=== PATIENT | female | born 1945 | race Caucasian/White ===

== ENCOUNTER 2016-08-17 06:31 | Inpatient (IN) | payer MEDICARE, OTHER ==
[~2016-08-17 06:31] MED LIST: HYDROmorphone 1 MG/ML 1 ML SYRINGE IVP STA; ONDANSETRON 4 MG/2 ML VIAL IVP STA
--- NOTE | 2016-08-17 06:34 | ED ---
General Adult HPI - General Source: RN notes reviewed <Adrian Freedman - Last Filed: 08/17/16 06:37> <Ciaran Santiago - Last Filed: 08/17/16 11:26> - General Stated complaint: R hip pain Time Seen by Provider: 08/17/16 06:31 - History of Present Illness Initial comments: This is a 71-year-old female who presents to the emergency department complaining of right shoulder and right hip pain. Patient states she slipped yesterday and fell down on her right side daughter helped her to the couch and she is feeling ever since. Patient try to get up this morning was having so much pain and hip she was unable to move it so she called the ambulance and EMS brought her into the emergency department. Patient states she had no head or neck pain. Patient denies any numbness weakness. Patient states she did not have any head trauma and did not lose consciousness. Patient denies any chest pain or back pain. Patient denies any difficulty breathing. Patient denies abdominal pain. Patient's main complaint is the lateral shoulder which she states she can move but it hurts to move the patient complains of lateral right hip pain however she states she is unable to move because the pain is too great. (Adrian Freedman) Review of Systems ROS Other: All systems not noted in ROS Statement are negative. <Adrian Freedman - Last Filed: 08/17/16 06:37> ROS Other: All systems not noted in ROS Statement are negative. <Ciaran Santiago - Last Filed: 08/17/16 11:26> ROS Statement: Those systems with pertinent positive or pertinent negative responses have been documented in the HPI. General Exam <Adrian Freedman - Last Filed: 08/17/16 06:37> <Ciaran Santiago - Last Filed: 08/17/16 11:26> - General Exam Comments Initial Comments: GENERAL: Patient is well-developed and well-nourished. Patient is nontoxic and well- hydrated and is in mild distress. ENT: Neck is soft and supple. No significant lymphadenopathy is noted. Oropharynx is clear. Moist mucous membranes. Neck has full range of motion without eliciting any pain. EYES: The sclera were anicteric and conjunctiva were pink and moist. Extraocular movements were intact and pupils were equal round and reactive to light. Eyelids were unremarkable. PULMONARY: Unlabored respirations. Good breath sounds bilaterally. No audible rales rhonchi or wheezing was noted. CARDIOVASCULAR: There is a regular rate and rhythm without any murmurs gallops or rubs. ABDOMEN: Soft and nontender with normal bowel sounds. SKIN: Skin is clear with no lesions or rashes and otherwise unremarkable. NEUROLOGIC: Patient is alert and oriented x3. Cranial nerves II through XII are grossly intact. Motor and sensory are also intact. Normal speech, volume and content. Symmetrical smile. MUSCULOSKELETAL: Normal extremities with adequate strength and full range of motion. Patient has tenderness to the lateral right shoulder lateral right hip. Patient is unable to move the hip but she is able to move her arm but it does cause her some pain. LYMPHATICS: No significant lymphadenopathy is noted PSYCHIATRIC: Normal psychiatric evaluation. Normal interpersonal interactions appears functionally intact in deals appropriately with others. No signs of depression. No signs of anxiety. (Adrian Freedman) Medical Decision Making <Adrian Freedman - Last Filed: 08/17/16 06:37> - Radiology Data Radiology results: image reviewed (Computed tomography scan of the right hip shows subcapital nondisplaced fracture. X-ray of the right hip and pelvis shows no obvious fracture. X-ray of the right shoulder does show humeral head oblique nondisplaced fracture. Right upper lobe nodule.) <Ciaran Santiago - Last Filed: 08/17/16 11:26> - Medical Decision Making Dr. Santiago will be taking over the care of this patient at 7 AM (Adrian Freedman) Patient reevaluated and drowsy however was updated. Case discussed with practitioner gal, who will admit for Dr. Dasilva. (Ciaran Santiago) Disposition <Adrian Freedman - Last Filed: 08/17/16 06:37> <Ciaran Santiago - Last Filed: 08/17/16 11:26> Clinical Impression: Fracture of right hip, Fracture of humeral head, right, closed, Lung nodule Disposition: ADMITTED IP TO THIS HOSP
--- NOTE | 2016-08-17 07:32 | XR ---
EXAMINATION TYPE: XR shoulder limited RT DATE OF EXAM: 08/17/2016 7:25 AM CLINICAL HISTORY: Fall injury with pain. TECHNIQUE: Two views of the right shoulder are obtained. COMPARISON: None. FINDINGS: Osseous structures are demineralized. There seen best on frontal view there is acute nondi splaced linear fracture involving the lateral aspect of the right humeral head near level of the grea ter tuberosity. The acromioclavicular and glenohumeral joint spaces appear within normal limits. Th e visualized ribs are intact and unremarkable. Chronic parenchymal changes are felt present with slig htly more suspicious nodular opacity right upper lobe. Neoplasm needs to BE excluded. IMPRESSION: There is acute nondisplaced oblique fracture through the lateral aspect of the right hum eral head. Attention to right upper lung, nonemergent CT correlation advised.
--- NOTE | 2016-08-17 07:35 | XR ---
EXAMINATION TYPE: XR Hip RT and AP Pelvis DATE OF EXAM: 08/17/2016 7:24 AM COMPARISON: NONE HISTORY: Fall injury with pelvic and right hip pain TECHNIQUE: A single AP view of the pelvis is obtained. Two views of the right hip are obtained. FINDINGS: Exam is suboptimal due to rotation. There is no acute fracture/dislocation evident in the pelvis definitively seen. The sacroiliac joints appear symmetric and unremarkable. Overlying vascula r calcification and phleboliths is present. Two views of right hip show discontinuity along the superior margin felt projectional as no linear jayne cency is identified and improved visualization is noted on frog-leg view. No focal lytic or scleroti c lesion seen in the proximal right femur. The overlying soft tissue is unremarkable. IMPRESSION: There is no acute fracture or dislocation in the pelvis or right hip definitively seen. If clinical suspicion is strong further investigation with CT exam would be warranted.
[2016-08-17] MEDS ORDERED: ONDANSETRON 4 MG/2 ML VIAL IVP STA (09:56)
[2016-08-17] MEDS ORDERED: MORPHINE SULFATE 4 MG/ML SYRINGE IVP STA (09:56)
--- NOTE | 2016-08-17 11:01 | CT ---
EXAMINATION TYPE: CT hip RT wo con DATE OF EXAM: 08/17/2016 10:44 AM COMPARISON: Same day pelvic x-ray HISTORY: Right hip pain after fall injury. CT DLP: 213.00 mGycm Automated exposure control for dose reduction was used. CT scan of pelvis focus in the left hip is pe rformed without contrast FINDINGS: Osseous structures are demineralized. There is linear lucency consistent with acute nondisplaced frac ture involving the anterior aspect of the proximal right femur at the femoral neck level seen best on axial image 56 and coronal image 40 at subcapital level. No hip joint dislocation is seen. Hip joint spaces are maintained bilaterally. No additional acute fracture or dislocation in the visualized pelvis is seen. Pubic symphysis and neo ateral sacroiliac joints are maintained. There is distortion from positioning noted making evaluation suboptimal. Muscle bulk and right thigh is within normal limits and symmetric to opposite left side. Visualized bowel shows no suspicious dilatation. Some distal diverticula are present in the sigmoid colon. Bladder is distended. There is facet arthropathy in the lower lumbar spine. There is spurring and disc space narrowing right L4-L5 level. IMPRESSION: THERE IS ACUTE NONDISPLACED LINEAR FRACTURE SUBCAPITAL LEVEL ANTERIORLY IN THE PROXIMAL RIGHT FEMUR
[2016-08-17] MEDS ORDERED: MORPHINE SULFATE 4 MG/ML SYRINGE IV PRN (11:26)
[2016-08-17] MEDS ORDERED: ONDANSETRON 4 MG/2 ML VIAL IVP PRN (11:26)
[2016-08-17] MEDS ORDERED: NALOXONE 0.4 MG/ML 1 ML VIAL IV PRN (11:26)
[2016-08-17] MEDS ORDERED: SODIUM CHLORIDE 0.9% 1,000 ML IV SCH (11:30)
[2016-08-17 12:13] LABS: Anisocytosis Slight; Basophils # (A) 0.1 k/uL (0-0.2); Basophils % (A) 1 %; CH 25.5; CHCM 29.4; Eosinophils # (A) 0.4 k/uL (0-0.7); Eosinophils % (A) 6 %; HCT 29.5 % (34.0-46.0); HGB 8.9 gm/dL (11.4-16.0); Hypochromasia Marked; Luc # (Auto) 0.26; Luc % (Auto) 4; Lymphocytes % (A) 14 %; MCH 26.2 pg (25.0-35.0); MCV 87.2 fL (80.0-100.0); Mean Platelet Volume 7.3; Monocytes # (A) 0.5 k/uL (0-1.0); Monocytes % (A) 7 %; Neutrophils % (A) 69 %; RBC 3.39 m/uL (3.80-5.40); WBC 7.2 k/uL (3.8-10.6); WBC (Perox) 7.55
[2016-08-17 12:28] LABS: Partial Thromboplastin Time 22.1 sec (22.0-30.0)
[2016-08-17 12:34] LABS: INR 1.1 (<1.1); Prothrombin Time 10.9 sec (9.0-12.0)
[2016-08-17 13:39] LABS: ALT 39 U/L (9-52); AST 45 U/L (14-36); Alkaline Phosphatase 221 U/L (38-126); Anion Gap 8 mmol/L; Blood Urea Nitrogen 24 mg/dL (7-17); Carbon Dioxide 29 mmol/L (22-30); Chloride 105 mmol/L (98-107); Glucose 89 mg/dL (74-99); Non-African American GFR(MDRD) >60 (>60 ml/min/1.73 sqM); Potassium 4.7 mmol/L (3.5-5.1); Sodium 142 mmol/L (137-145); Total Bilirubin 0.4 mg/dL (0.2-1.3); Total Protein 8.1 g/dL (6.3-8.2)
[2016-08-17] MEDS ORDERED: ACETAMINOPHEN IV (For NPO) 1,000 MG in EMPTY BAG 1 BAG IVPB PRN (14:21)
[2016-08-17] MEDS ORDERED: HYDROcodone/APAP 5-325MG 1 EACH TAB PO PRN (14:23)
[2016-08-17] MEDS ORDERED: IPRATROPIUM-ALBUTEROL 3 ML NEB INHALATION PRN (15:21)
[2016-08-17] MEDS ORDERED: SUMAtriptan SUCCINATE 50 MG TAB PO PRN (18:50)
[2016-08-17] MEDS: BUDESONIDE 0.5 MG/2 ML NEBU INHALATION SCH (19:00)
[2016-08-17] MEDS: FORMOTEROL FUMARATE 20 MCG/2 ML NEBU INHALATION SCH (19:01)
[2016-08-17] MEDS: IPRATROPIUM-ALBUTEROL 3 ML NEB INHALATION SCH ×2 (19:01)
[2016-08-17] MEDS: HYDROmorphone 1 MG/ML 1 ML SYRINGE IVP PRN (19:19)
--- NOTE | 2016-08-17 20:14 | XR ---
EXAMINATION TYPE: XR chest 1V DATE OF EXAM: 08/17/2016 4:10 PM COMPARISON: Chest CT same date HISTORY: COPD and cough TECHNIQUE: Single frontal view of the chest is obtained. FINDINGS: Calcified breast prostheses are present. There is extensive interstitial change within the lung, interlobular septal pleural thickening, patient is rotated. Heart size is normal. No pneumotho rax or pleural effusion. IMPRESSION: Interstitial lung disease, there may be underlying COPD, bronchiectasis.
--- NOTE | 2016-08-17 20:22 | CT ---
EXAMINATION TYPE: CT chest wo con DATE OF EXAM: 08/17/2016 7:38 PM COMPARISON: Chest x-ray same day HISTORY: R/O mass. CT DLP: 142.8 mGycm Automated exposure control for dose reduction was used. FINDINGS: Calcified breast prostheses are present with findings suggestive of intracapsular ruptures. There may be extracapsular rupture additionally. There is extensive interstitial change within the lung, inter lobular septal pleural thickening, parenchymal bands, bronchial wall thickening is present. Bronchiec tasis changes, emphysematous changes are present, cystic lucencies within the lung parenchyma especia lly in the upper lobes. Apical pleural thickening is present. Retrocaval pretracheal adenopathy. The pulmonary artery is enlarged. There are coronary artery calcifications. Two cystic foci are present within the left lobe liver measuring approximately 16 mm. IMPRESSION: FINDINGS COULD POSSIBLY REPRESENT AN ATYPICAL PRESENTATION OF LYMPHANGIOMYOMATOSIS. BRONCHIECTASIS. M AY BE AREAS OF PNEUMONITIS, BRONCHOPNEUMONIA. Correlate for pulmonary artery hypertension. Retrocaval pretracheal adenopathy is present. Consider pulmonary fibrosis, Lymphangitic spread of carcinoma not excluded
[2016-08-17] MEDS: clonazePAM 0.5 MG TAB PO SCH (20:42)
[2016-08-17] MEDS: cloNIDine HCL 0.1 MG TAB PO SCH (20:43)
[2016-08-17] MEDS: CYCLOBENZAPRINE 10 MG TAB PO SCH (20:43)
[2016-08-17] MEDS: methylPREDNISolone SOD SUCCI 40 MG/ML 1 ML VIAL IV SCH (20:43)
[2016-08-17] MEDS: GABAPENTIN 300 MG CAP PO SCH (20:43)
[2016-08-18] MEDS: GABAPENTIN 300 MG CAP PO SCH ×4 (02:38→19:59)
[2016-08-18] MEDS: clonazePAM 0.5 MG TAB PO SCH ×3 (02:38→19:58)
[2016-08-18] MEDS: cloNIDine HCL 0.1 MG TAB PO SCH ×3 (02:38→19:58)
[2016-08-18] MEDS: CYCLOBENZAPRINE 10 MG TAB PO SCH ×4 (02:38→19:59)
[2016-08-18] MEDS: HYDROmorphone 1 MG/ML 1 ML SYRINGE IVP PRN ×5 (03:32→19:59)
--- NOTE | 2016-08-18 06:56 | P.HPOR ---
History of Present Illness H&P Date: 08/17/16 Chief Complaint: Right hip fracture This is a 71-year-old female who sustained a fall on home on 08/16/2016. She presented to [facility] on 08/17/2016 and was admitted to our service for right hip fracture. The patient was seen and evaluated in the emergency department on 08/17. Unfortunately she just received morphine and was very drowsy and unable to provide any history. She seen and evaluated again this morning and is much more alert. She states that she had a slip and fall on the patio. She had immediate pain in her right hip and shoulder. She also had a fall couple weeks ago as well. She complains of right hip pain that is worse with any motion. She has COPD. She has no new complaints this time. No fevers , chills, nausea, vomiting, worsening shortness of breath or chest pain. Review of Systems See HPI Past Medical History Past Medical History: COPD, Hypertension History of Any Multi-Drug Resistant Organisms: None Reported Past Surgical History: Hysterectomy Past Psychological History: No Psychological Hx Reported Smoking Status: Current every day smoker Past Alcohol Use History: None Reported Past Drug Use History: None Reported - Past Family History Mother Additional Family Medical History / Comment(s): unable to verbalize Medications and Allergies Home Medications Medication Instructions Recorded Confirmed Type Acetaminophen Tab [Tylenol Tab] 650 mg PO Q6H PRN 08/17/16 08/17/16 History Albuterol Nebulized [Ventolin 2.5 mg INHALATION RT-QID PRN 08/17/16 08/17/16 History Nebulized] Budesonide [Pulmicort] 0.5 mg INHALATION RT-BID 08/17/16 08/17/16 History Cyclobenzaprine [Flexeril] 10 mg PO TID 08/17/16 08/17/16 History Gabapentin 600 mg PO TID 08/17/16 08/17/16 History HYDROcodone/APAP 10-325MG [Kingfisher 1 tab PO QID PRN 08/17/16 08/17/16 History 10-325] Hydrochlorothiazide [Hydrodiuril] 12.5 mg PO BID 08/17/16 08/17/16 History Ipratropium Holden [Atrovent Hfa] 2 puff INHALATION RT-QID PRN 08/17/16 History SUMAtriptan SUCCINATE [Imitrex] 100 mg PO BID PRN 08/17/16 08/17/16 History Tiotropium Holden [Spiriva] 1 cap INHALATION RT-DAILY 08/17/16 08/17/16 History cloNIDine HCL [Catapres] 0.1 mg PO BID 08/17/16 08/17/16 History clonazePAM [KlonoPIN] 0.5 mg PO BID 08/17/16 08/17/16 History diphenhydrAMINE HCL [Benadryl] 25 mg PO BID PRN 08/17/16 08/17/16 History Allergies Allergy/AdvReac Type Severity Reaction Status Date / Time No Known Allergies Allergy Verified 08/17/16 06:41 Physical Examination She does not appear in acute distress. She is alert and orientated 3. Her daughter is present at bedside. Head normocephalic atraumatic. Neck is supple. Breathing appears nonlabored. Abdomen is soft and nondistended. She complains of right shoulder pain to palpation. Range of motion is limited secondary to pain and fracture. There is mild swelling. No ecchymosis. Skin is intact. She moves her left upper extremity freely without difficulty or pain. Upon examination of her lower extremities is pain palpation of the right hip and worsening pain with any motion of the right hip. She otherwise denies any other areas of pain of her long bones and joints. She has sustained dorsiflexion plantar flexion. Dorsalis pedis pulse 2+ out of 4+ right lower extremity. Sensation is intact. Results X-rays of the right shoulder showed greater tuberosity fracture and suspicion for long nodule. Computed tomography scan of the right hip show acute nondisplaced linear fracture at the subcapital level in the right femur. - Labs Labs: Abnormal Lab Results - Last 24 Hours (Table) 08/17/16 08/17/16 Range/Units 11:55 12:50 RBC 3.39 L (3.80-5.40) m/uL Hgb 8.9 L (11.4-16.0) gm/dL Hct 29.5 L (34.0-46.0) % MCHC 30.0 L (31.0-37.0) g/dL RDW 17.0 H (11.5-15.5) % BUN 24 H (7-17) mg/dL AST 45 H (14-36) U/L Alkaline Phosphatase 221 H (38-126) U/L H & H 08/17/16 Range/Units 11:55 Hgb 8.9 L (11.4-16.0) gm/dL Hct 29.5 L (34.0-46.0) % Coagulation 08/17/16 Range/Units 11:55 INR 1.1 (<1.1) Result Diagrams: 08/17/16 11:55 08/17/16 12:50 Assessment and Plan (1) Fall Status: Acute (2) Fracture of right hip Status: Acute (3) Greater tuberosity of humerus fracture Status: Acute Plan: The clinical and x-ray findings were discussed with the patient and her daughter at bedside. The nature of this type of injuries discussed as well. Nonoperative versus operative treatment is discussed. Orthopedics recommends hemiarthroplasty of the right hip. This is been scheduled for Friday pending medical clearance. The patient will remain nothing by mouth after midnight. Possible risks and complications of the procedure including but not limited to infection, bleeding, myocardial infraction, stroke, hip dislocation, leg length discrepancy and were discussed. Patient understands the risks and wishes to proceed with the procedure. Her right humerus fracture be treated with a sling. Lung nodule be worked up by medicine. The patient will likely require 3-4 day hospital stay with subacute rehab upon discharge. Further recommendations forthcoming depending upon the patient's course.
[2016-08-18] MEDS ORDERED: HYDROmorphone 1 MG/ML 1 ML SYRINGE IVP PRN (07:12)
[2016-08-18 07:13] LABS: Anisocytosis Slight; Basophils # (A) 0.1 k/uL (0-0.2); Basophils % (A) 1 %; CH 25.7; CHCM 29.5; Eosinophils % (A) 0 %; HDW 2.75; HGB 8.8 gm/dL (11.4-16.0); Hypochromasia Marked; Luc # (Auto) 0.35; Luc % (Auto) 4; Lymphocytes # (A) 1.5 k/uL (1.0-4.8); Lymphocytes % (A) 16 %; MCH 25.6 pg (25.0-35.0); MCHC 29.3 g/dL (31.0-37.0); MCV 87.3 fL (80.0-100.0); Mean Platelet Volume 7.2; Monocytes # (A) 0.7 k/uL (0-1.0); Monocytes % (A) 8 %; Neutrophils # (A) 6.5 k/uL (1.3-7.7); Neutrophils % (A) 71 %; RBC 3.43 m/uL (3.80-5.40); WBC 9.1 k/uL (3.8-10.6); WBC (Perox) 9.47
[2016-08-18] MEDS ORDERED: LACTATED RINGERS 1,000 ML IV SCH (07:15)
[2016-08-18] MEDS: FORMOTEROL FUMARATE 20 MCG/2 ML NEBU INHALATION SCH ×2 (07:29→18:57)
[2016-08-18] MEDS: BUDESONIDE 0.5 MG/2 ML NEBU INHALATION SCH ×2 (07:29→18:57)
[2016-08-18] MEDS: IPRATROPIUM-ALBUTEROL 3 ML NEB INHALATION SCH ×3 (07:29→15:16)
[2016-08-18] MEDS ORDERED: ceFAZolin 2 GM in SODIUM CHLORIDE 0.9% 100 ML IVPB ONE (07:34)
[2016-08-18 07:35] LABS: Anion Gap 10 mmol/L; Calcium 9.3 mg/dL (8.4-10.2); Carbon Dioxide 25 mmol/L (22-30); Chloride 107 mmol/L (98-107); Glucose 101 mg/dL (74-99); Non-African American GFR(MDRD) >60 (>60 ml/min/1.73 sqM); Sodium 142 mmol/L (137-145)
[2016-08-18 07:36] LABS: Blood Urea Nitrogen 21 mg/dL (7-17)
[2016-08-18 07:39] LABS: Potassium 4.5 mmol/L (3.5-5.1)
[2016-08-18] MEDS ORDERED: ONDANSETRON 4 MG/2 ML VIAL ONE (07:58)
[2016-08-18] MEDS ORDERED: fentaNYL (PF) 50 MCG/ML 2 ML AMP ONE (07:58)
[2016-08-18] MEDS ORDERED: PHENYLEPHRINE-0.9% NACL SYG 1 MG/10 ML SYRINGE ONE (07:58)
[2016-08-18] MEDS ORDERED: MIDAZOLAM 2 MG/2 ML VIAL ONE (07:58)
[2016-08-18] MEDS ORDERED: KETAMINE 10 MG/ML 20 ML VIAL ONE (07:58)
[2016-08-18] MEDS ORDERED: IV FLUID CONTINUATION 500 ML IV ONE ×2 (08:08)
[2016-08-18] MEDS ORDERED: SODIUM CHLORIDE 0.9% 50 ML with ceFAZolin 2,000 MG IV ONE ×4 (08:08)
[2016-08-18] MEDS ORDERED: ceFAZolin 3,000 MG in SODIUM CHLORIDE 0.9% IRRIGATIO 3,000 ML IRRIGATION ONE (08:30)
[2016-08-18] MEDS ORDERED: LACTATED RINGERS 1,000 ML IV ONE ×2 (08:33)
--- NOTE | 2016-08-18 09:02 | P.OP ---
Date of Procedure: 08/18/16 Preoperative Diagnosis: Subcapital fracture right hip Postoperative Diagnosis: Subcapital fracture right hip Procedure(s) Performed: Right hip hemiarthroplasty Implants: Pacheco and nephew Polarstem size 3 standard [employer]ache[employer]hew tandem unipolar, 44 mm Pacheco [employer]hew tandem unipolar 12/14 taper sleeve, -3 mm All components were press-fit. Anesthesia: spinal Surgeon: Cheng Dasilva Extension Specialist #1: Erendira Munroe Estimated Blood Loss (ml): 100 Pathology: other (Femoral head) Condition: stable Disposition: PACU Indications for Procedure: This is a 71-year-old female who fell at home onto her right side. X-rays demonstrated a fracture of her subcapital right hip and right greater tuberosity of the shoulder. After discussing the surgical nonsurgical treatment options with her at length, I have recommended a right hip hemiarthroplasty for hip fracture. Other options included a hip pinning, but due to the fracture of her right shoulder, I recommended a hemiarthroplasty because of the ability to bear full weight immediately. She is agreeable to this, and informed consent was obtained. Operative Findings: Operative findings are consistent with a subcapital fracture of the right hip. Description of Procedure: Patient was seen and evaluated in the preoperative area, consent was reviewed and the operative site was marked with a skin marker. Patient was then brought to the operating room and given 2 g of Ancef intravenously. A spinal anesthetic was administered by the anesthesia department. Patient was then placed in a lateral decubitus position and held with a Montral hip positioner. The bony prominences were well-padded and an axillary roll was placed. The hip was then prepped and draped in the usual sterile fashion. A universal timeout was then performed which confirmed the patient's name, surgical site, ALLERGIES, and procedure. A standard anterolateral approach the hip was performed. Skin and subcutaneous tissues were sharply incised with an incision centered over the tip of the greater trochanter. The incision was carefully dissected down to the fascia. The fascia was then split in line with skin incision and a Charnley retractor was gently placed. The abductors were then identified, and the anterior one third of the abductors were released off the trochanter and one large sleeve. The fracture hematoma was evacuated and the proximal femur was exposed by externally rotating the femur. The fracture site was readily visualized. Next , using an osteotomy guide, the proximal femur was osteotomized at the appropriate level of the above the lesser trochanter. This bone was then removed. Attention was then turned to the femoral head. Using a corkscrew, the femoral head was removed from the acetabulum without incident. The acetabulum was inspected, and found to have no significant arthrosis. Femoral head was then measured. Attention was then redirected to the femur. Proximal femur was re-exposed and a box osteotome was used to lateralize the proximal femur. A shaper machine hand was then used to locate the femoral canal. Sequential broaching was then performed to the appropriate size. The calcar was then planed and trial head and neck were placed. The hip was then gently reduced. Leg lengths were checked and found to be equal. Hip was then taken through a full range of motion was stable throughout. The hip was then gently dislocated with the aid of a bone hook. The trial head and neck were then removed. The femoral broach was then inspected and found to have a secure fit. The broach was then removed. The hip was then copiously irrigated with antibiotic solution with a pulse lavage. Components were then opened and the femoral stem was then impacted into the proximal femur. The trunnion was cleaned and dried, and the femoral head and neck were then impacted. Hip was again gently reduced. Again leg lengths were checked and found to be equal, and the hip was taken through a full range of motion and found to be stable. The hip was again irrigated with pulsatile lavage, then followed by the Irrrisept solution. The abductors were then repaired through drill holes to the bone to the greater trochanter, utilizing #5 Ethibond suture. Next the fascia was repaired with #2 strata fix suture. The subcutaneous tissue was then repaired with 3-0 Vicryl. The subcuticular tissue was then repaired with 3-0 strata fix suture. Skin was then closed with Dermabond tape. A sterile dressing was then applied and the patient was transported to the recovery room in stable condition. Extension Specialist Erendira Munroe was required due to the complexity of surgery the need for skilled surgical instruments inspector. She assisted with positioning the patient, draping the patient, retraction during the surgery, and closure of the wound.
[2016-08-18] MEDS: PANTOPRAZOLE 40 MG TABLET PO SCH (09:14)
[2016-08-18] MEDS: methylPREDNISolone SOD SUCCI 40 MG/ML 1 ML VIAL IV SCH ×2 (09:15→19:58)
[2016-08-18] MEDS ORDERED: HYDROcodone/APAP 5-325MG 1 EACH TAB PO PRN ×2 (09:22→09:25)
[2016-08-18] MEDS ORDERED: NALOXONE 0.4 MG/ML 1 ML VIAL IV PRN (09:22)
[2016-08-18] MEDS ORDERED: MAGNESIUM HYDROXIDE 2,400 MG/10 ML CUP PO PRN (09:22)
[2016-08-18] MEDS ORDERED: ALBUTEROL NEBULIZED 2.5 MG/3 ML INHALATION ONE (09:25)
--- NOTE | 2016-08-18 10:00 | XR ---
Limited right hip HISTORY: Status post right hip arthroplasty Single frontal view of the right hip submitted. Comparison to CT scan 17 August 2016 FINDINGS: Patient is status post right hip arthroplasty. Lucency in the soft tissues compatible with postop state. There is anatomic alignment. IMPRESSION: Orthopedic follow-up.
[2016-08-18 10:46] LABS: Anisocytosis Slight; Basophils % (A) 0 %; CH 24.8; CHCM 27.6; Eosinophils # (A) 0.1 k/uL (0-0.7); Eosinophils % (A) 1 %; HCT 30.9 % (34.0-46.0); HDW 2.66; HGB 8.7 gm/dL (11.4-16.0); Hypochromasia Marked; Luc # (Auto) 0.24; Luc % (Auto) 2; Lymphocytes % (A) 10 %; MCH 25.3 pg (25.0-35.0); MCHC 28.1 g/dL (31.0-37.0); Mean Platelet Volume 6.5; Monocytes # (A) 0.5 k/uL (0-1.0); Monocytes % (A) 5 %; Neutrophils # (A) 8.7 k/uL (1.3-7.7); Neutrophils % (A) 82 %; RBC 3.43 m/uL (3.80-5.40); RDW 16.4 % (11.5-15.5); WBC 10.6 k/uL (3.8-10.6); WBC (Perox) 11.45
--- NOTE | 2016-08-18 10:48 | CONS ---
DATE OF CONSULTATION: 08/17/2016 REASON FOR CONSULTATION: Cough, congestion, shortness of breath and abnormal shoulder x-ray. HISTORY OF PRESENTING ILLNESS: Ms. Ann Jones is a 71-year-old female with extensive history of smoking and nicotine use. She used to smoke about 1-1/2 to 2 packs per day, has been an active smoker. Patient presented into the emergency department after a fall. Patient started to develop progressive weakness in the hip as well as shoulder after the fall with severe pain. Patient was found to have oblique fracture of the right humerus as well as the subcapital fracture of the right hip as well. Orthopedic surgery, Dr. Dasilva is following. Patient has been noted to have increased shortness of breath and presence of a nodule. I was asked to evaluate this patient further. On specific questioning, patient does have ongoing symptoms of cough, congestion and shortness of breath. Patient does see Dr. Carleen Malloy on outpatient basis. She describes some procedure has been done and overall it appears that probably nodule is old nodule and not a new one. The records from the office; however, are not available at this point in time. She does have cough, wheezing and shortness of breath off and on going on. It appears that the patient has been Xolair as well in the past. Past medical history significant for severe chronic obstructive pulmonary disease, emphysema, right upper lobe nodule, recent fall with right subcapital fracture, nondisplaced and right humeral fracture. Generalized anxiety disorder, migraine headaches, hypertension. PAST SURGICAL HISTORY: Otherwise unremarkable and noncontributory. ALLERGIES: No known drug allergy. Medications at home include: 1. Tylenol as needed. 2. Nebulizer Ventolin 4 times a day. 3. Pulmicort 2 times a day. 4. Flexeril as needed. 5. Neurontin 600, 3 times a day. 6. [place] 10, 1 tablet 4 times a day. 7. Also on Atrovent HFA 2 puffs 4 times a day. 8. Imitrex as needed 100 mg 2 times a day. 9. Spiriva once daily. 10. Catapres 0.1 mg p.o. 2 times a day. 11. Klonopin 0.5 b.i.d. 12. Benadryl as needed 25 mg. FAMILY HISTORY AND SOCIAL HISTORY: As dictated above, otherwise unremarkable and noncontributory. REVIEW OF SYSTEMS: MANAGER PLAY: Denies any seizure-like activity, loss of consciousness, hemiparesis. CARDIORESPIRATORY: Significant for cough, shortness of breath. Cough is mostly dry and nonproductive, has issues associated with wheezing as well. GI/: Otherwise unremarkable. MUSCULOSKELETAL/DERMATOLOGICAL: Unremarkable except as dictated above. Current medications while in the hospital include Tylenol as needed, DuoNeb unit dose updraft 4 times a day, [place] as needed, Dilaudid for pain control, Narcan, Zofran, normal saline KVO. On examination, most recent vitals include blood pressure is 124/79, respiratory rate 16 to 18, heart rate is 99, temperature 98, saturation 93% on 2 liters oxygen. HEENT: Atraumatic, normocephalic. Pharynx is clear without any exudate. NECK: Supple without any lymphadenopathy, jugular venous distention. LUNGS: Bilateral inspiratory, expiratory wheezing and rhonchi are present. HEART: Regular rate and rhythm. S1 and S2 audible. ABDOMEN: Soft. No rebound or rigidity. EXTREMITIES: +1 peripheral pulses. NEUROLOGICAL EXAMINATION: Otherwise, awake and alert. X-ray is reviewed. The x-ray of the shoulder reveal acute nondisplaced oblique fracture through the lateral part of the right humeral head, nodular opacity is seen in the right upper lobe on the same x-ray. Hip x-ray finding as dictated above as well as CT finding, which revealed presence of acute nondisplaced ( ) fracture subcapital area anteriorly in the right femur. Other laboratory data reviewed. White cell count 7200, hemoglobin 8.9, hematocrit 29, platelet count 259,000. Sodium is 140, potassium 4.7. BUN and creatinine 24 and 0.7. Alk phos is 221. AST and ALT, 45 and 39. Influenza A and B both negative. IMPRESSION: 1. Acute chronic obstructive pulmonary disease exacerbation. 2. Tracheobronchitis. 3. Status post fall with nondisplaced fracture of right humeral head as well as subcapital fracture of right femur. 4. Right upper lobe nodule. PLAN AND RECOMMENDATION: To continue patient on breathing treatments, add Pulmicort. Will initiate patient on empiric antibiotics as well as IV steroids. Surgical intervention as per Orthopedic Surgery. I will obtain a CT scan of the chest without IV contrast as well to look at the exact details about the nodule. Will follow.
--- NOTE | 2016-08-18 11:17 | CONS ---
REASON FOR CONSULT: Regarding COPD with multiple medical issues requested by Orthopedic Surgery. HISTORY OF PRESENT ILLNESS: This 71-year-old woman with a past medical history of COPD, hypertension, history of hysterectomy, history of nicotine dependence being followed by Dr. Sage in the outpatient setting was admitted with femoral fracture as well as humerus fracture on the right side after slipping and falling. There is no history of any syncope. No history of any headache, loss of consciousness. Patient also has history of significant COPD. Patient also complains of cough at this time. There is no history of any fever, rigors or chills. No history of headache, loss of consciousness, seizures. PAST MEDICAL HISTORY: COPD, hypertension, history of nicotine dependence. Medications prior to admission include: 1. Benadryl 25 mg b.i.d. p.r.n. 2. Klonopin 0.5 mg b.i.d. 3. Catapres 0.1. p.o. b.i.d. 4. Spiriva 1 puff daily. 5. Imitrex 100 mg b.i.d. p.r.n. 6. Atrovent HFA 2 puffs q.i.d. p.r.n. 7. HydroDIURIL 12.5 mg b.i.d. 8. [place] 10 mg q.i.d. p.r.n. 9. Gabapentin 600 mg t.i.d. 10. Flexeril 10 mg p.o. t.i.d. 11. Pulmicort 0.5 mg b.i.d. 12. Ventolin 2.5 t.i.d. p.r.n. 13. Tylenol 650 every 6 hours p.r.n. ALLERGIES: None. FAMILY HISTORY: No history of heart disease or strokes in the family. SOCIAL HISTORY: History of continuous smoking. No history of alcohol intake. REVIEW OF SYSTEMS: ENT: Diminishing hearing. Diminished vision. CARDIOVASCULAR: No angina, palpitations. RESPIRATORY: As mentioned earlier. GI: No nausea. : No dysuria. NERVOUS: No numbness, weakness. ALLERGY/IMMUNOLOGY: No asthma, hay fever. MUSCULOSKELETAL: As mentioned earlier. HEMATOLOGY/ONCOLOGY: Negative. DERMATOLOGY: Negative. RHEUMATOLOGY: Negative. PSYCHIATRY: As mentioned earlier. PHYSICAL EXAM: Alert and oriented x2. Pulse 102, blood pressure 124/79, respirations 16, temperature 97.8, pulse ox 93% on 2L. HEENT: Conjunctivae normal. Oral mucosa moist. NECK: No jugular venous distension. No carotid bruits. No lymph node enlargement. CARDIOVASCULAR: S1, S2 muffled. No S3. No S4. RESPIRATORY: Breath sounds diminished at the bases. A few scattered rhonchi and crackles. Expiratory wheezing also . ABDOMEN: Soft, nontender. No mass palpable. LEGS: No edema. No swelling. NERVOUS SYSTEM: Higher functions as mentioned. Moves all 4 limbs. Mild diffuse weakness. LYMPHATIC: No lymph nodes palpable in neck, axillae or groins. SKIN: No ulcer, rash or bleeding. Labs at this time show WBC 7.8, hemoglobin is 8.9. Alk phos 221, AST is 45. Influenza negative. ASSESSMENT: 1. Acute right femoral fracture and as well as right humerus fracture, status post fall. 2. Anemia, normocytic anemia of chronic disease. 3. Increased AST. 4. Increased BUN with some dehydration, present on admission. 5. History of chronic obstructive pulmonary disease. 6. History of hypertension. 7. History of nicotine dependence. 8. FULL CODE. RECOMMENDATIONS AND DISCUSSION: In this 71-year-old woman who presented with multiple complex medical issues, we will monitor the patient closely. Continue the current medications, optimize bronchodilator treatment, pulmonary consultation. Otherwise, continue to monitor. IV steroids per Pulmonary. We will follow the patient closely with you. Patient is clinically stable. The patient will be cleared for surgery if they accept risks because of the multiple medications as mentioned earlier. Once again, we will optimize the bronchodilator treatment. MTDD
[2016-08-18] MEDS: HYDROcodone/APAP 5-325MG 1 EACH TAB PO PRN (13:15)
[2016-08-18] MEDS: SODIUM CHLORIDE 0.9% 1,000 ML IV SCH ×2 (13:21→23:49)
[2016-08-18] MEDS ORDERED: METOPROLOL TARTRATE 12.5 MG TAB PO SCH (16:15)
[2016-08-18] MEDS ORDERED: LEVALBUTEROL NEB 0.31 MG/3 ML AMP INHALATION PRN (17:03)
[2016-08-18] MEDS ORDERED: IPRATROPIUM 0.5 MG/2.5 ML NEBU INHALATION PRN (17:04)
[2016-08-18 17:12] LABS: Glucose,Whole Blood 268 mg/dL (75-99)
[2016-08-18] MEDS: ceFAZolin 2 GM in SODIUM CHLORIDE 0.9% 100 ML IVPB SCH ×2 (17:18→23:49)
[2016-08-18 17:32] LABS: Amorphous Sediment,Urine Rare /hpf; Appearance,Urine Clear (Clear); Bacteria,Urine Rare /hpf; Bilirubin,Urine Negative (Negative); Glucose,Urine (UA) Negative (Negative); Ketones,Urine Negative (Negative); Leukocyte Esterase,Urine Small (Negative); Mucus,Urine Occasional /hpf; Nitrite,Urine Negative (Negative); PH, Urine 5.5 (5.0-8.0); Particle Count 2520; Protein,Urine Trace (Negative); RBC,Urine 12 /hpf (0-5); Squamous Epithelial Cell,Urine <1 /hpf (0-4); UA Billing (MACRO vs. MICRO) MICRO; Urobilinogen,Urine <2.0 mg/dL (<2.0); WBC,Urine 12 /hpf (0-5)
[2016-08-18] MEDS ORDERED: LEVALBUTEROL NEB (CONC) 1.25 MG/0.5 ML AMP INHALATION PRN (17:38)
[2016-08-18] MEDS ORDERED: WARFARIN 5 MG TAB PO ONE (18:00)
[2016-08-18] MEDS: INSULIN LISPRO (humaLOG) 300 UNIT/3 ML VIAL SQ SCH ×2 (18:05→21:42)
[2016-08-18] MEDS: IPRATROPIUM 0.5 MG/2.5 ML NEBU INHALATION SCH (18:57)
[2016-08-18] MEDS: LEVALBUTEROL NEB (CONC) 1.25 MG/0.5 ML AMP INHALATION SCH (18:57)
[2016-08-18] MEDS: SENNOSIDES-DOCUSATE SODIUM 1 EACH TAB PO SCH (19:58)
[2016-08-18] MEDS ORDERED: LEVALBUTEROL NEB 0.31 MG/3 ML AMP INHALATION SCH (20:00)
[2016-08-18 20:16] LABS: Glucose,Whole Blood 136 mg/dL (75-99)
[2016-08-19] MEDS: HYDROcodone/APAP 5-325MG 1 EACH TAB PO PRN ×4 (05:19→18:44)
[2016-08-19 07:10] LABS: Glucose,Whole Blood 137 mg/dL (75-99)
[2016-08-19 07:19] LABS: Anisocytosis Slight; Basophils % (A) 0 %; CH 25.3; CHCM 28.9; Eosinophils % (A) 0 %; HCT 26.1 % (34.0-46.0); HDW 2.76; HGB 7.6 gm/dL (11.4-16.0); Hypochromasia Marked; Luc # (Auto) 0.27; Luc % (Auto) 3; Lymphocytes # (A) 1.1 k/uL (1.0-4.8); Lymphocytes % (A) 14 %; MCH 25.5 pg (25.0-35.0); MCHC 29.1 g/dL (31.0-37.0); MCV 87.6 fL (80.0-100.0); Mean Platelet Volume 7.2; Monocytes # (A) 0.7 k/uL (0-1.0); Monocytes % (A) 9 %; Neutrophils # (A) 5.8 k/uL (1.3-7.7); Neutrophils % (A) 73 %; RBC 2.98 m/uL (3.80-5.40); RDW 16.7 % (11.5-15.5); WBC 7.9 k/uL (3.8-10.6); WBC (Perox) 8.13
[2016-08-19 07:24] LABS: INR 1.2 (<1.1); Prothrombin Time 11.6 sec (9.0-12.0)
[2016-08-19 07:37] LABS: Anion Gap 8 mmol/L; Blood Urea Nitrogen 14 mg/dL (7-17); Calcium 8.6 mg/dL (8.4-10.2); Carbon Dioxide 26 mmol/L (22-30); Chloride 107 mmol/L (98-107); Glucose 134 mg/dL (74-99); Non-African American GFR(MDRD) >60 (>60 ml/min/1.73 sqM); Potassium 4.2 mmol/L (3.5-5.1); Sodium 141 mmol/L (137-145)
[2016-08-19] MEDS: BUDESONIDE 0.5 MG/2 ML NEBU INHALATION SCH ×2 (07:55→19:30)
[2016-08-19] MEDS: IPRATROPIUM 0.5 MG/2.5 ML NEBU INHALATION SCH ×3 (07:55→19:30)
[2016-08-19] MEDS: FORMOTEROL FUMARATE 20 MCG/2 ML NEBU INHALATION SCH ×2 (07:55→19:30)
[2016-08-19] MEDS: LEVALBUTEROL NEB (CONC) 1.25 MG/0.5 ML AMP INHALATION SCH ×3 (07:55→19:30)
[2016-08-19] MEDS: INSULIN LISPRO (humaLOG) 300 UNIT/3 ML VIAL SQ SCH ×4 (08:31→20:42)
[2016-08-19] MEDS: methylPREDNISolone SOD SUCCI 40 MG/ML 1 ML VIAL IV SCH ×2 (08:31→20:42)
[2016-08-19] MEDS: GABAPENTIN 300 MG CAP PO SCH ×3 (08:31→20:42)
[2016-08-19] MEDS: PANTOPRAZOLE 40 MG TABLET PO SCH (08:32)
[2016-08-19] MEDS: cloNIDine HCL 0.1 MG TAB PO SCH ×2 (08:32→20:41)
[2016-08-19] MEDS: CYCLOBENZAPRINE 10 MG TAB PO SCH ×3 (08:32→20:42)
--- NOTE | 2016-08-19 08:34 | P.PN ---
Subjective Principal diagnosis: tachycardia This is a continue present on a 71-year-old white female essentially meant for hip fracture. She is postop day #1 but is having postop tachycardia and hypertension. We will go ahead and increase her Lopressor to 12.5 mg twice a day and titrate. The patient does not describe any new shortness of breath. However, there is pneumonitis possibly on computed tomography scan. Appreciate pulmonology input. Objective - Vital Signs Vital signs: Vital Signs Temp 98.8 F 08/19/16 02:10 Pulse 110 H 08/19/16 08:25 Resp 16 08/19/16 02:10 BP 126/70 08/19/16 02:10 Pulse Ox 95 08/19/16 07:59 Intake & Output 08/18/16 08/19/16 08/19/16 18:59 06:59 18:59 Intake Total 1801 1275 Output Total 750 500 Balance 1051 775 Intake: IV 1801 975 Sodium Chloride 0.9% 1, 600 975 000 ml @ 75 mls/hr IV . [id number] [facility] Rx#:[id number] Oral 300 Output: Urine 650 500 Uretheral (Cuevas) 350 Estimated Blood Loss 100 Other: Voiding Method Indwelling Catheter Indwelling Catheter Indwelling Catheter - Constitutional General appearance: Present: thin - EENT Eyes: Absent: abnormal pupil - Respiratory Respiratory: bilateral: diminished - Cardiovascular Heart sounds: normal: S1, S2 - Gastrointestinal General gastrointestinal: Present: soft. Absent: tenderness - Psychiatric Psychiatric: Present: A&O x's 3 - Labs CBC & Chem 7: 08/19/16 06:55 08/19/16 06:55 Labs: Abnormal Lab Results - Last 24 Hours (Table) 08/18/16 08/18/16 08/18/16 Range/Units 10:16 17:11 17:15 RBC 3.43 L (3.80-5.40) m/uL Hgb 8.7 L (11.4-16.0) gm/dL Hct 30.9 L (34.0-46.0) % MCHC 28.1 L (31.0-37.0) g/dL RDW 16.4 H (11.5-15.5) % Neutrophils # 8.7 H (1.3-7.7) k/uL Creatinine (0.52-1.04) mg/dL Glucose (74-99) mg/dL POC Glucose (mg/dL) 268 H (75-99) mg/dL Urine Protein Trace H (Negative) Urine Blood Small H (Negative) Ur Leukocyte Esterase Small H (Negative) Urine RBC 12 H (0-5) /hpf Urine WBC 12 H (0-5) /hpf Amorphous Sediment Rare H (None) /hpf Urine Bacteria Rare H (None) /hpf Urine Mucus Occasional H (None) /hpf 08/18/16 08/19/16 08/19/16 Range/Units 20:14 06:44 06:55 RBC 2.98 L (3.80-5.40) m/uL Hgb 7.6 L (11.4-16.0) gm/dL Hct 26.1 L (34.0-46.0) % MCHC 29.1 L (31.0-37.0) g/dL RDW 16.7 H (11.5-15.5) % Neutrophils # (1.3-7.7) k/uL Creatinine (0.52-1.04) mg/dL Glucose (74-99) mg/dL POC Glucose (mg/dL) 136 H 137 H (75-99) mg/dL Urine Protein (Negative) Urine Blood (Negative) Ur Leukocyte Esterase (Negative) Urine RBC (0-5) /hpf Urine WBC (0-5) /hpf Amorphous Sediment (None) /hpf Urine Bacteria (None) /hpf Urine Mucus (None) /hpf 08/19/16 Range/Units 06:55 RBC (3.80-5.40) m/uL Hgb (11.4-16.0) gm/dL Hct (34.0-46.0) % MCHC (31.0-37.0) g/dL RDW (11.5-15.5) % Neutrophils # (1.3-7.7) k/uL Creatinine 0.50 L (0.52-1.04) mg/dL Glucose 134 H (74-99) mg/dL POC Glucose (mg/dL) (75-99) mg/dL Urine Protein (Negative) Urine Blood (Negative) Ur Leukocyte Esterase (Negative) Urine RBC (0-5) /hpf Urine WBC (0-5) /hpf Amorphous Sediment (None) /hpf Urine Bacteria (None) /hpf Urine Mucus (None) /hpf Microbiology - Last 24 Hours (Table) 08/18/16 17:15 Urine Culture - Preliminary Urine,Clean Catch Assessment and Plan (1) UTI (urinary tract infection) Status: Acute (2) Sinus tachycardia Status: Acute (3) Fracture of humeral head, right, closed Status: Acute (4) Lung nodule Status: Acute Plan: We'll go ahead and continue current regimen but increase her Lopressor. Check CBC in a.m. See orders otherwise. Continue postop pulmonary toilet. Discharge planning for ECF versus home health. Time with Patient: Less than 30
[2016-08-19] MEDS: clonazePAM 0.5 MG TAB PO SCH ×2 (08:36→20:41)
[2016-08-19] MEDS: METOPROLOL TARTRATE 12.5 MG TAB PO SCH ×2 (08:36→20:42)
--- NOTE | 2016-08-19 08:43 | P.PN ---
Subjective Principal diagnosis: Status post right hip hemiarthroplasty This is a pleasant 71-year-old female who is status post right hip hemiarthroplasty. Today's postoperative day #1. She also has greater tuberosity fracture of the right shoulder. She seen and evaluated at bedside this morning. She complains of pain at the shoulder and hip. She's not yet with physical therapy. She does have baseline COPD and is coughing today. Objective - Vital Signs Vital signs: Vital Signs Temp 98.8 F 08/19/16 02:10 Pulse 110 H 08/19/16 08:25 Resp 16 08/19/16 02:10 BP 126/70 08/19/16 02:10 Pulse Ox 95 08/19/16 07:59 Intake & Output 08/18/16 08/19/16 08/19/16 18:59 06:59 18:59 Intake Total 1801 1275 Output Total 750 500 Balance 1051 775 Intake: IV 1801 975 Sodium Chloride 0.9% 1, 600 975 000 ml @ 75 mls/hr IV . [id number] [facility] Rx#:[id number] Oral 300 Output: Urine 650 500 Uretheral (Cuevas) 350 Estimated Blood Loss 100 Other: Voiding Method Indwelling Catheter Indwelling Catheter Indwelling Catheter - Exam The patient does not appear in acute distress. Alert and orientated 3. Dressing is clean dry and intact. Incision appears fine with no erythema or active drainage. Calf is soft and nontender. Good foot and ankle motion without difficulty. Sensation and circulatory status is intact. Sling is intact. She is able to wiggle all 5 fingers without difficulty or pain. Sensation and circulatory status is intact. - Labs CBC & Chem 7: 08/19/16 06:55 08/19/16 06:55 Labs: Abnormal Lab Results - Last 24 Hours (Table) 08/18/16 08/18/16 08/18/16 Range/Units 10:16 17:11 17:15 RBC 3.43 L (3.80-5.40) m/uL Hgb 8.7 L (11.4-16.0) gm/dL Hct 30.9 L (34.0-46.0) % MCHC 28.1 L (31.0-37.0) g/dL RDW 16.4 H (11.5-15.5) % Neutrophils # 8.7 H (1.3-7.7) k/uL Creatinine (0.52-1.04) mg/dL Glucose (74-99) mg/dL POC Glucose (mg/dL) 268 H (75-99) mg/dL Urine Protein Trace H (Negative) Urine Blood Small H (Negative) Ur Leukocyte Esterase Small H (Negative) Urine RBC 12 H (0-5) /hpf Urine WBC 12 H (0-5) /hpf Amorphous Sediment Rare H (None) /hpf Urine Bacteria Rare H (None) /hpf Urine Mucus Occasional H (None) /hpf 08/18/16 08/19/16 08/19/16 Range/Units 20:14 06:44 06:55 RBC 2.98 L (3.80-5.40) m/uL Hgb 7.6 L (11.4-16.0) gm/dL Hct 26.1 L (34.0-46.0) % MCHC 29.1 L (31.0-37.0) g/dL RDW 16.7 H (11.5-15.5) % Neutrophils # (1.3-7.7) k/uL Creatinine (0.52-1.04) mg/dL Glucose (74-99) mg/dL POC Glucose (mg/dL) 136 H 137 H (75-99) mg/dL Urine Protein (Negative) Urine Blood (Negative) Ur Leukocyte Esterase (Negative) Urine RBC (0-5) /hpf Urine WBC (0-5) /hpf Amorphous Sediment (None) /hpf Urine Bacteria (None) /hpf Urine Mucus (None) /hpf 08/19/16 Range/Units 06:55 RBC (3.80-5.40) m/uL Hgb (11.4-16.0) gm/dL Hct (34.0-46.0) % MCHC (31.0-37.0) g/dL RDW (11.5-15.5) % Neutrophils # (1.3-7.7) k/uL Creatinine 0.50 L (0.52-1.04) mg/dL Glucose 134 H (74-99) mg/dL POC Glucose (mg/dL) (75-99) mg/dL Urine Protein (Negative) Urine Blood (Negative) Ur Leukocyte Esterase (Negative) Urine RBC (0-5) /hpf Urine WBC (0-5) /hpf Amorphous Sediment (None) /hpf Urine Bacteria (None) /hpf Urine Mucus (None) /hpf Microbiology - Last 24 Hours (Table) 08/18/16 17:15 Urine Culture - Preliminary Urine,Clean Catch Assessment and Plan (1) Fall Status: Acute (2) Fracture of right hip Status: Acute (3) Greater tuberosity of humerus fracture Status: Acute Plan: Continue with routine postoperative care. Pain control today and anticoagulation with Coumadin. Physical therapy will attempt to mobilize. Anticipate transfer to rehab in the next 24-48 hours.
[2016-08-19 08:48] LABS: Hemoglobin A1C 5.7 % (4.2-6.1)
--- NOTE | 2016-08-19 09:19 | PN ---
Ann Jones is a 71-year-old female who is seen, evaluated, and examined. This patient has been hospitalized because of hip fracture, has been noted to have COPD exacerbation and tracheobronchitis and right upper lobe nodule. Patient is status post postop day #0 of right hip arthroplasty by Dr. Dasilva. Last set of vitals include blood pressure is 130/57, respirations 16, pulse 110, temperature 98, saturation of 93% on 3 L oxygen. HEENT EXAMINATION: Otherwise unremarkable. NECK: Supple without any lymphadenopathy, jugular venous distention or carotid bruit. LUNGS: Bilateral coarse breath sounds are present. HEART: Regular rate and rhythm. S1 and S2 audible. Abdomen is soft. No rebound or rigidity. EXTREMITIES: +1 peripheral pulses. NEUROLOGICAL EXAMINATION: Otherwise, awake and alert. Medications reviewed include Tylenol with codeine 4 times a day, DuoNeb unit dose updraft 4 times a day. Also on Pulmicort 2 times a day, Rocephin once daily, cefazolin is q.8 hourly. Also on Klonopin, Catapres is 0.1 two times a day, Flexeril, Benadryl, Perforomist is 2 times a day, Neurontin, Dilaudid, Restoril, Milk of magnesia, Coumadin as per protocol. Solu-Medrol is 40 q.12 hourly. Laboratory data reviewed. White cell count is 10,600, hemoglobin and hematocrit is 8.7 and 30.9, platelet count of 242,000. Chemistry reviewed. BUN and creatinine are 21and 0.6. Rest of chemistry is normal. The radiographic studies including CT scan of the chest has been reviewed. The patient has breast prosthesis with question off intracapsular rupture with interstitial changes in the lung. Pleural thickening septation has been noted along with interstitial changes in the lung. Pleural thickening septation has been noted along with bands along with bronchial wall thickening, bronchiectasis. Emphysematous changes are seen along with cystic changes in the lung parenchyma, especially in the upper part of the lung. Pneumonia cannot be excluded. Lymphadenopathy in pretracheal area, likely reactive is present. IMPRESSION: 1. Acute chronic obstructive pulmonary disease exacerbation. 2. Pneumonia along with pulmonary fibrosis and bronchiectasis. 3. End-stage lung disease secondary severe chronic obstructive pulmonary disease. 4. Status post fall and left hip fracture. Plan is to continue steroids, bronchodilators, antibiotics. Continue supportive care. Further more extensive evaluation of the lungs issues and problem in outpatient setting by Dr. Floyd Maloly.
--- NOTE | 2016-08-19 09:50 | PN ---
I am covering for Dr. Sage. HISTORY OF PRESENT ILLNESS: This is a 71-year-old woman who was admitted after right humerus fracture and right hip fracture, underwent right hip hemiarthroplasty by Dr. Dasilva. The patient also has COPD. No chest or palpitation. Occasional cough is reported. On exam, alert and oriented x3. Pulse 109, blood pressure 113/56, respirations 16, temperature 98.1, pulse ox 96% on room air. HEENT: Conjunctivae normal. NECK: No jugular venous distension. CARDIOVASCULAR SYSTEM: S1, S2, muffled. RESPIRATORY: Breath sounds diminished at the bases. A few scattered rhonchi, no crackles, respiratory wheezing also present. ABDOMEN: Soft, nontender. No mass palpable. EXTREMITIES: Legs no edema, no swelling. Status post surgery, no . Humerus right status post fracture on a sling. LABS: WBC is 10.3, hemoglobin is 8.6. Influenza is negative. ASSESSMENT: 1. Acute right hip fracture, status post right hip hemiarthroplasty. 2. Right humerus fracture, status post fall. 3. Anemia, normocytic anemia of chronic disease, present on admission. 4. Increased AST. 5. Increased BUN with some dehydration was present on admission. 6. History of chronic obstructive pulmonary disease. 7. Hypertension. 8. History of nicotine dependence. 9. Tachycardia 10. FULL CODE. RECOMMENDATION AND DISCUSSION: In this 71-year-old woman who presented with multiple complex medical issues, will monitor the patient closely. Continue with the current medication. The initial EKG shows sinus tachycardia. Will continue to monitor and the pleura is slightly elevated. I would recommend a small dose of beta blockers to be added to the current regimen and continue to monitor. Guarded prognosis. Further recommendations to follow. Dr. Sage will follow. Patient is started on IV steroids also. MTDD
[2016-08-19 11:37] LABS: Glucose,Whole Blood 137 mg/dL (75-99)
[2016-08-19 14:14] VITALS: BMI 23.8
--- NOTE | 2016-08-19 15:21 | P.PN ---
Subjective Principal diagnosis: Fall with hip/humerus fracture Patient seen and examined. Patient states she is in pain and wants to be moved from the chair to the bed. The nurse is notified. THe patient states her breathing is a little worse today. She continues to smoke even though she was told she shouldn't. She denies cough, fever, chills. Objective - Vital Signs Vital signs: Vital Signs Temp 98.8 F 08/19/16 02:10 Pulse 118 H 08/19/16 14:35 Resp 16 08/19/16 02:10 BP 126/70 08/19/16 02:10 Pulse Ox 95 08/19/16 07:59 Intake & Output 08/18/16 08/19/16 08/19/16 18:59 06:59 18:59 Intake Total 1801 1275 Output Total 750 500 300 Balance 1051 775 -300 Weight 57.153 kg Intake: IV 1801 975 Sodium Chloride 0.9% 1, 600 975 000 ml @ 75 mls/hr IV . [id number] [facility] Rx#:[id number] Oral 300 Output: Urine 650 500 300 Uretheral (Cuevas) 350 300 Estimated Blood Loss 100 Other: Voiding Method Indwelling Catheter Indwelling Catheter Indwelling Catheter - Exam Gen: A+OX3, NAD, cachexia CV: RRR, s1/s2 Lungs: Diminished breath sounds bilaterally Abd: soft, NT/ND, +BS Ext: no edema, right hip dressing C/D/I, RUE in sling - Labs CBC & Chem 7: 08/19/16 06:55 08/19/16 06:55 Labs: Abnormal Lab Results - Last 24 Hours (Table) 08/18/16 08/18/16 08/18/16 Range/Units 17:11 17:15 20:14 RBC (3.80-5.40) m/uL Hgb (11.4-16.0) gm/dL Hct (34.0-46.0) % MCHC (31.0-37.0) g/dL RDW (11.5-15.5) % Creatinine (0.52-1.04) mg/dL Glucose (74-99) mg/dL POC Glucose (mg/dL) 268 H 136 H (75-99) mg/dL Urine Protein Trace H (Negative) Urine Blood Small H (Negative) Ur Leukocyte Esterase Small H (Negative) Urine RBC 12 H (0-5) /hpf Urine WBC 12 H (0-5) /hpf Amorphous Sediment Rare H (None) /hpf Urine Bacteria Rare H (None) /hpf Urine Mucus Occasional H (None) /hpf 08/19/16 08/19/16 08/19/16 Range/Units 06:44 06:55 06:55 RBC 2.98 L (3.80-5.40) m/uL Hgb 7.6 L (11.4-16.0) gm/dL Hct 26.1 L (34.0-46.0) % MCHC 29.1 L (31.0-37.0) g/dL RDW 16.7 H (11.5-15.5) % Creatinine 0.50 L (0.52-1.04) mg/dL Glucose 134 H (74-99) mg/dL POC Glucose (mg/dL) 137 H (75-99) mg/dL Urine Protein (Negative) Urine Blood (Negative) Ur Leukocyte Esterase (Negative) Urine RBC (0-5) /hpf Urine WBC (0-5) /hpf Amorphous Sediment (None) /hpf Urine Bacteria (None) /hpf Urine Mucus (None) /hpf 08/19/16 Range/Units 11:34 RBC (3.80-5.40) m/uL Hgb (11.4-16.0) gm/dL Hct (34.0-46.0) % MCHC (31.0-37.0) g/dL RDW (11.5-15.5) % Creatinine (0.52-1.04) mg/dL Glucose (74-99) mg/dL POC Glucose (mg/dL) 137 H (75-99) mg/dL Urine Protein (Negative) Urine Blood (Negative) Ur Leukocyte Esterase (Negative) Urine RBC (0-5) /hpf Urine WBC (0-5) /hpf Amorphous Sediment (None) /hpf Urine Bacteria (None) /hpf Urine Mucus (None) /hpf Microbiology - Last 24 Hours (Table) 08/18/16 17:15 Urine Culture - Preliminary Urine,Clean Catch Assessment and Plan Plan: AECOPD Cystic lung disease: differential includes SCHWAB, Histiocytosis X, cystic bronchiectasis, LIP/DIP, HP, other Bronchiectasis Pulmonary cachexia Active tobacco abuse s/p fall with right hip and humerus fractures Anemia Hypertension Dehydration POA UTI POA, culture pending O2 to maintain sat > or = 88% Continue Duonebs and Pulmicort, Perforomist IS and pulmonary hygiene Pain control PT and OT Smoking cessation is highly recommended Outpatient PFT Patient will need surgical lung biopsy, can be arranged outpatient Will check IgE/HP panel Singulair GI and DVT prophylaxis: Protonix and Coumadin Outpatient pulmonary follow up for cystic lung disease
[2016-08-19 16:39] LABS: Glucose,Whole Blood 142 mg/dL (75-99)
[2016-08-19] MEDS ORDERED: WARFARIN 7.5 MG TAB PO ONE (18:00)
[2016-08-19 20:37] LABS: Glucose,Whole Blood 126 mg/dL (75-99)
[2016-08-19] MEDS: SENNOSIDES-DOCUSATE SODIUM 1 EACH TAB PO SCH (20:42)
[2016-08-19] MEDS: MONTELUKAST 10 MG TAB PO SCH (20:42)
[2016-08-19] MEDS: SODIUM CHLORIDE 0.9% 1,000 ML IV SCH (20:46)
[2016-08-19] MEDS: HYDROmorphone 1 MG/ML 1 ML SYRINGE IVP PRN (20:49)
[2016-08-20] MEDS: SODIUM CHLORIDE 0.9% 1,000 ML IV SCH ×2 (03:55→12:50)
[2016-08-20 07:14] LABS: Glucose,Whole Blood 105 mg/dL (75-99)
[2016-08-20 07:22] LABS: Anisocytosis Slight; Basophils % (A) 0 %; CH 25.4; CHCM 29.3; Eosinophils % (A) 0 %; HCT 25.7 % (34.0-46.0); HDW 2.79; HGB 7.5 gm/dL (11.4-16.0); Hypochromasia Marked; Luc # (Auto) 0.28; Luc % (Auto) 3; Lymphocytes # (A) 1.1 k/uL (1.0-4.8); Lymphocytes % (A) 13 %; MCH 25.5 pg (25.0-35.0); MCHC 29.3 g/dL (31.0-37.0); MCV 87.1 fL (80.0-100.0); Mean Platelet Volume 7.2; Monocytes # (A) 0.7 k/uL (0-1.0); Monocytes % (A) 8 %; Neutrophils # (A) 6.3 k/uL (1.3-7.7); Neutrophils % (A) 76 %; RBC 2.95 m/uL (3.80-5.40); RDW 17.1 % (11.5-15.5); WBC 8.3 k/uL (3.8-10.6); WBC (Perox) 9.05
[2016-08-20 07:32] LABS: INR 1.2 (<1.1); Prothrombin Time 12.1 sec (9.0-12.0)
[2016-08-20] MEDS: HYDROcodone/APAP 5-325MG 1 EACH TAB PO PRN ×4 (07:46→23:40)
[2016-08-20] MEDS: hydrOXYzine PAMOATE 25 MG CAP PO PRN ×3 (07:46→18:11)
[2016-08-20] MEDS: INSULIN LISPRO (humaLOG) 300 UNIT/3 ML VIAL SQ SCH ×4 (07:48→23:01)
[2016-08-20] MEDS: PANTOPRAZOLE 40 MG TABLET PO SCH (07:51)
[2016-08-20] MEDS: GABAPENTIN 300 MG CAP PO SCH ×3 (07:52→20:20)
[2016-08-20] MEDS: CYCLOBENZAPRINE 10 MG TAB PO SCH ×3 (07:52→20:20)
[2016-08-20] MEDS: methylPREDNISolone SOD SUCCI 40 MG/ML 1 ML VIAL IV SCH ×2 (07:52→20:20)
[2016-08-20 08:01] LABS: ALT 28 U/L (9-52); AST 54 U/L (14-36); Alkaline Phosphatase 160 U/L (38-126); Anion Gap 8 mmol/L; Blood Urea Nitrogen 14 mg/dL (7-17); Calcium 8.6 mg/dL (8.4-10.2); Carbon Dioxide 28 mmol/L (22-30); Chloride 106 mmol/L (98-107); Glucose 105 mg/dL (74-99); Non-African American GFR(MDRD) >60 (>60 ml/min/1.73 sqM); Potassium 4.3 mmol/L (3.5-5.1); Sodium 142 mmol/L (137-145); Total Bilirubin 0.4 mg/dL (0.2-1.3); Total Protein 6.9 g/dL (6.3-8.2)
--- NOTE | 2016-08-20 08:27 | P.PN ---
Subjective Principal diagnosis: tachycardia This is a continue present illness 71-year-old white female essentially postop day #2 for hip fracture. The patient's blood count has been stable. She has an underlying history of severe COPD. No significant new complaints are stated. Had a long discussion regarding discharge planning. Probable rehab placement would be appropriate. No voiding difficulties are stated. Appetite seems to be nominal this morning. Objective - Vital Signs Vital signs: Vital Signs Temp 98.0 F 08/20/16 08:05 Pulse 103 H 08/20/16 08:05 Resp 16 08/20/16 08:05 BP 145/83 08/20/16 08:05 Pulse Ox 97 08/20/16 08:05 Intake & Output 08/19/16 08/20/16 08/20/16 18:59 06:59 18:59 Output Total 300 Balance -300 Weight 57.153 kg Output: Urine 300 Uretheral (Cuevas) 300 Other: Voiding Method Indwelling Catheter # Voids 1 1 2 - Constitutional General appearance: Present: thin - EENT Eyes: Absent: abnormal pupil - Neck Neck: Absent: lymphadenopathy - Respiratory Respiratory: bilateral: CTA - Cardiovascular Rhythm: regular Heart sounds: normal: S1, S2 - Gastrointestinal General gastrointestinal: Present: soft. Absent: tenderness - Neurologic Neurologic: Present: CNII-XII intact - Psychiatric Psychiatric: Present: A&O x's 3 - Labs CBC & Chem 7: 08/20/16 06:57 08/20/16 06:57 Labs: Abnormal Lab Results - Last 24 Hours (Table) 08/19/16 08/19/16 08/19/16 Range/Units 11:34 16:36 20:35 RBC (3.80-5.40) m/uL Hgb (11.4-16.0) gm/dL Hct (34.0-46.0) % MCHC (31.0-37.0) g/dL RDW (11.5-15.5) % PT (9.0-12.0) sec Creatinine (0.52-1.04) mg/dL Glucose (74-99) mg/dL POC Glucose (mg/dL) 137 H 142 H 126 H (75-99) mg/dL AST (14-36) U/L Alkaline Phosphatase (38-126) U/L Albumin (3.5-5.0) g/dL 08/20/16 08/20/16 08/20/16 Range/Units 06:53 06:57 06:57 RBC 2.95 L (3.80-5.40) m/uL Hgb 7.5 L (11.4-16.0) gm/dL Hct 25.7 L (34.0-46.0) % MCHC 29.3 L (31.0-37.0) g/dL RDW 17.1 H (11.5-15.5) % PT (9.0-12.0) sec Creatinine 0.50 L (0.52-1.04) mg/dL Glucose 105 H (74-99) mg/dL POC Glucose (mg/dL) 105 H (75-99) mg/dL AST 54 H (14-36) U/L Alkaline Phosphatase 160 H (38-126) U/L Albumin 2.8 L (3.5-5.0) g/dL 08/20/16 Range/Units 06:57 RBC (3.80-5.40) m/uL Hgb (11.4-16.0) gm/dL Hct (34.0-46.0) % MCHC (31.0-37.0) g/dL RDW (11.5-15.5) % PT 12.1 H (9.0-12.0) sec Creatinine (0.52-1.04) mg/dL Glucose (74-99) mg/dL POC Glucose (mg/dL) (75-99) mg/dL AST (14-36) U/L Alkaline Phosphatase (38-126) U/L Albumin (3.5-5.0) g/dL Microbiology - Last 24 Hours (Table) 08/18/16 17:15 Urine Culture - Final Urine,Clean Catch Assessment and Plan (1) UTI (urinary tract infection) Status: Acute (2) Sinus tachycardia Status: Acute (3) Fracture of humeral head, right, closed Status: Acute (4) Lung nodule Status: Acute Plan: Continue appropriate rehab. The patient should've discharge planning. Check CBC in a.m. Time with Patient: Less than 30
[2016-08-20] MEDS: FORMOTEROL FUMARATE 20 MCG/2 ML NEBU INHALATION SCH ×2 (08:32→18:58)
[2016-08-20] MEDS: IPRATROPIUM 0.5 MG/2.5 ML NEBU INHALATION SCH ×3 (08:32→18:58)
[2016-08-20] MEDS: BUDESONIDE 0.5 MG/2 ML NEBU INHALATION SCH ×2 (08:32→18:58)
[2016-08-20] MEDS: LEVALBUTEROL NEB (CONC) 1.25 MG/0.5 ML AMP INHALATION SCH ×3 (08:32→18:58)
[2016-08-20] MEDS: clonazePAM 0.5 MG TAB PO SCH ×2 (08:52→20:20)
[2016-08-20] MEDS: METOPROLOL TARTRATE 12.5 MG TAB PO SCH ×2 (08:52→20:20)
[2016-08-20] MEDS: cloNIDine HCL 0.1 MG TAB PO SCH ×2 (08:52→20:20)
--- NOTE | 2016-08-20 09:57 | P.PN ---
Subjective Principal diagnosis: Status post right hip hemiarthroplasty This is a pleasant 71-year-old female who is status post right hip hemiarthroplasty. Today's postoperative day #2. She also has greater tuberosity fracture of the right shoulder. She seen and evaluated at bedside this morning with Dr. Dasilva. She complains of pain at the shoulder and hip. She has no new complaints at this time. Objective - Vital Signs Vital signs: Vital Signs Temp 98.0 F 08/20/16 08:05 Pulse 98 08/20/16 08:55 Resp 16 08/20/16 08:05 BP 145/83 08/20/16 08:05 Pulse Ox 96 08/20/16 08:35 Intake & Output 08/19/16 08/20/16 08/20/16 18:59 06:59 18:59 Output Total 300 Balance -300 Weight 57.153 kg Output: Urine 300 Uretheral (Cuevas) 300 Other: Voiding Method Indwelling Catheter # Voids 1 1 2 - Exam The patient does not appear in acute distress. Alert and orientated 3. Dressing is clean dry and intact. Incision appears fine with no erythema or active drainage. Calf is soft and nontender. Good foot and ankle motion without difficulty. Sensation and circulatory status is intact. Sling is intact. She is able to wiggle all 5 fingers without difficulty or pain. Sensation and circulatory status is intact. - Labs CBC & Chem 7: 08/20/16 06:57 08/20/16 06:57 Labs: Abnormal Lab Results - Last 24 Hours (Table) 08/19/16 08/19/16 08/19/16 Range/Units 11:34 16:36 20:35 RBC (3.80-5.40) m/uL Hgb (11.4-16.0) gm/dL Hct (34.0-46.0) % MCHC (31.0-37.0) g/dL RDW (11.5-15.5) % PT (9.0-12.0) sec Creatinine (0.52-1.04) mg/dL Glucose (74-99) mg/dL POC Glucose (mg/dL) 137 H 142 H 126 H (75-99) mg/dL AST (14-36) U/L Alkaline Phosphatase (38-126) U/L Albumin (3.5-5.0) g/dL 08/20/16 08/20/16 08/20/16 Range/Units 06:53 06:57 06:57 RBC 2.95 L (3.80-5.40) m/uL Hgb 7.5 L (11.4-16.0) gm/dL Hct 25.7 L (34.0-46.0) % MCHC 29.3 L (31.0-37.0) g/dL RDW 17.1 H (11.5-15.5) % PT (9.0-12.0) sec Creatinine 0.50 L (0.52-1.04) mg/dL Glucose 105 H (74-99) mg/dL POC Glucose (mg/dL) 105 H (75-99) mg/dL AST 54 H (14-36) U/L Alkaline Phosphatase 160 H (38-126) U/L Albumin 2.8 L (3.5-5.0) g/dL 08/20/16 Range/Units 06:57 RBC (3.80-5.40) m/uL Hgb (11.4-16.0) gm/dL Hct (34.0-46.0) % MCHC (31.0-37.0) g/dL RDW (11.5-15.5) % PT 12.1 H (9.0-12.0) sec Creatinine (0.52-1.04) mg/dL Glucose (74-99) mg/dL POC Glucose (mg/dL) (75-99) mg/dL AST (14-36) U/L Alkaline Phosphatase (38-126) U/L Albumin (3.5-5.0) g/dL Microbiology - Last 24 Hours (Table) 08/18/16 17:15 Urine Culture - Final Urine,Clean Catch Assessment and Plan (1) Fall Status: Acute (2) Fracture of right hip Status: Acute (3) Greater tuberosity of humerus fracture Status: Acute Plan: Continue with routine postoperative care. Pain control today and anticoagulation with Coumadin. Physical therapy will attempt to mobilize. Anticipate transfer to rehab tomorrow.
[2016-08-20 10:49] LABS: Alternaria alternata IgE <0.35 kU/L (<0.35); Asperg. fumagatus IgE <0.35 kU/L (<0.35); Asperg. fumagatus IgE Class CLASS 0; Cat Epith & Dander IgE <0.35 kU/L (<0.35); Cat Epith & Dander IgE Class CLASS 0; Clad herbarum IgE <0.35 kU/L (<0.35); Clad herbarum IgE Class CLASS 0; Com. Pigweed IgE <0.35 kU/L (<0.35); Com. Pigweed IgE Class CLASS 0; Common Ragweed IgE Class CLASS 0; Cow's Milk IgE Class CLASS 0; Dermato. farinae IgE <0.35 kU/L (<0.35); Dermato. farinae IgE Class CLASS 0; House Dust (Greer) IgE <0.35 kU/L (<0.35); House Dust (Greer) IgE Class CLASS 0; Maple (Box Elder) IgE <0.35 kU/L (<0.35); Maple (Box Elder) IgE Class CLASS 0; Penicillium notatum IgE Class CLASS 0; Timothy Grass IgE <0.35 kU/L (<0.35); Timothy Grass IgE Class CLASS 0
[2016-08-20 12:15] LABS: Glucose,Whole Blood 133 mg/dL (75-99)
--- NOTE | 2016-08-20 13:42 | P.PN ---
Subjective Principal diagnosis: Hip fracture Patient seen and examined. Patient states her pain is much more controlled today. She states her breathing feels really good today. She has no needs or complaints at this time. Objective - Vital Signs Vital signs: Vital Signs Temp 98.0 F 08/20/16 08:05 Pulse 98 08/20/16 08:55 Resp 16 08/20/16 08:05 BP 145/83 08/20/16 08:05 Pulse Ox 96 08/20/16 08:35 Intake & Output 08/19/16 08/20/16 08/20/16 18:59 06:59 18:59 Intake Total 240 Output Total 300 Balance -300 240 Weight 57.153 kg Intake: Oral 240 Output: Urine 300 Uretheral (Cuevas) 300 Other: Voiding Method Indwelling Catheter Indwelling Catheter # Voids 1 1 2 - Exam Gen: A+OX3, NAD, cachexia CV: RRR, s1/s2 Lungs: Diminished breath sounds bilaterally Abd: soft, NT/ND, +BS Ext: no edema, right hip dressing C/D/I, RUE in sling - Labs CBC & Chem 7: 08/20/16 06:57 08/20/16 06:57 Labs: Abnormal Lab Results - Last 24 Hours (Table) 08/19/16 08/19/16 08/20/16 Range/Units 16:36 20:35 06:53 RBC (3.80-5.40) m/uL Hgb (11.4-16.0) gm/dL Hct (34.0-46.0) % MCHC (31.0-37.0) g/dL RDW (11.5-15.5) % PT (9.0-12.0) sec Creatinine (0.52-1.04) mg/dL Glucose (74-99) mg/dL POC Glucose (mg/dL) 142 H 126 H 105 H (75-99) mg/dL AST (14-36) U/L Alkaline Phosphatase (38-126) U/L Albumin (3.5-5.0) g/dL 08/20/16 08/20/16 08/20/16 Range/Units 06:57 06:57 06:57 RBC 2.95 L (3.80-5.40) m/uL Hgb 7.5 L (11.4-16.0) gm/dL Hct 25.7 L (34.0-46.0) % MCHC 29.3 L (31.0-37.0) g/dL RDW 17.1 H (11.5-15.5) % PT 12.1 H (9.0-12.0) sec Creatinine 0.50 L (0.52-1.04) mg/dL Glucose 105 H (74-99) mg/dL POC Glucose (mg/dL) (75-99) mg/dL AST 54 H (14-36) U/L Alkaline Phosphatase 160 H (38-126) U/L Albumin 2.8 L (3.5-5.0) g/dL 08/20/16 Range/Units 12:08 RBC (3.80-5.40) m/uL Hgb (11.4-16.0) gm/dL Hct (34.0-46.0) % MCHC (31.0-37.0) g/dL RDW (11.5-15.5) % PT (9.0-12.0) sec Creatinine (0.52-1.04) mg/dL Glucose (74-99) mg/dL POC Glucose (mg/dL) 133 H (75-99) mg/dL AST (14-36) U/L Alkaline Phosphatase (38-126) U/L Albumin (3.5-5.0) g/dL Microbiology - Last 24 Hours (Table) 08/18/16 17:15 Urine Culture - Final Urine,Clean Catch Assessment and Plan Plan: AECOPD Cystic lung disease: differential includes SCHWAB, Histiocytosis X, cystic bronchiectasis, LIP/DIP, HP, other Bronchiectasis Pulmonary cachexia Active tobacco abuse s/p fall with right hip and humerus fractures Anemia Hypertension Dehydration POA UTI POA, culture pending O2 to maintain sat > or = 88% Continue Duonebs and Pulmicort, Perforomist IS and pulmonary hygiene Pain control PT and OT Smoking cessation is highly recommended Outpatient PFT Patient will need surgical lung biopsy, can be arranged outpatient Pending IgE/HP panel Singulair GI and DVT prophylaxis: Protonix and Coumadin Outpatient pulmonary follow up for cystic lung disease Okay to discharge from pulmonary standpoint
[2016-08-20] MEDS ORDERED: ACETAMINOPHEN TAB 325 MG TAB PO PRN (14:32)
[2016-08-20 17:01] LABS: Glucose,Whole Blood 147 mg/dL (75-99)
[2016-08-20] MEDS ORDERED: WARFARIN 7.5 MG TAB PO ONE (18:00)
[2016-08-20] MEDS: SENNOSIDES-DOCUSATE SODIUM 1 EACH TAB PO SCH (20:20)
[2016-08-20] MEDS: MONTELUKAST 10 MG TAB PO SCH (20:20)
[2016-08-20 20:44] LABS: Glucose,Whole Blood 118 mg/dL (75-99)
[2016-08-20] MEDS: diphenhydrAMINE 25 MG CAP PO PRN (23:49)
[2016-08-21 01:46] VITALS: RESP 16
[2016-08-21] MEDS: HYDROcodone/APAP 5-325MG 1 EACH TAB PO PRN ×3 (05:29→17:30)
[2016-08-21] MEDS: diphenhydrAMINE 25 MG CAP PO PRN (05:33)
[2016-08-21] MEDS: LEVALBUTEROL NEB (CONC) 1.25 MG/0.5 ML AMP INHALATION SCH ×2 (05:35→11:43)
[2016-08-21] MEDS: IPRATROPIUM 0.5 MG/2.5 ML NEBU INHALATION SCH ×2 (05:35→11:43)
[2016-08-21] MEDS: SODIUM CHLORIDE 0.9% 1,000 ML IV SCH (06:24)
[2016-08-21 06:59] LABS: INR 2.2 (<1.1); Prothrombin Time 21.6 sec (9.0-12.0)
[2016-08-21 07:07] LABS: ALT 29 U/L (9-52); AST 51 U/L (14-36); Alkaline Phosphatase 145 U/L (38-126); Anion Gap 8 mmol/L; Blood Urea Nitrogen 25 mg/dL (7-17); Calcium 8.7 mg/dL (8.4-10.2); Carbon Dioxide 26 mmol/L (22-30); Chloride 109 mmol/L (98-107); Glucose 108 mg/dL (74-99); Non-African American GFR(MDRD) >60 (>60 ml/min/1.73 sqM); Potassium 4.7 mmol/L (3.5-5.1); Sodium 143 mmol/L (137-145); Total Bilirubin 0.4 mg/dL (0.2-1.3); Total Protein 6.7 g/dL (6.3-8.2)
[2016-08-21] MEDS: INSULIN LISPRO (humaLOG) 300 UNIT/3 ML VIAL SQ SCH ×3 (07:11→17:13)
[2016-08-21] MEDS: GABAPENTIN 300 MG CAP PO SCH ×2 (07:12→17:32)
[2016-08-21] MEDS: methylPREDNISolone SOD SUCCI 40 MG/ML 1 ML VIAL IV SCH (07:12)
[2016-08-21] MEDS: METOPROLOL TARTRATE 12.5 MG TAB PO SCH (07:12)
[2016-08-21] MEDS: PANTOPRAZOLE 40 MG TABLET PO SCH (07:12)
[2016-08-21] MEDS: CYCLOBENZAPRINE 10 MG TAB PO SCH ×2 (07:12→17:32)
[2016-08-21] MEDS: clonazePAM 0.5 MG TAB PO SCH (07:14)
[2016-08-21 07:22] LABS: Anisocytosis Slight; CH 25.3; CHCM 28.9; HCT 23.1 % (34.0-46.0); HDW 2.76; Hypochromasia Marked; MCHC 29.5 g/dL (31.0-37.0); MCV 87.9 fL (80.0-100.0); Mean Platelet Volume 7.4; RBC 2.63 m/uL (3.80-5.40); RDW 17.1 % (11.5-15.5); WBC 10.2 k/uL (3.8-10.6)
[2016-08-21 07:32] LABS: Glucose,Whole Blood 114 mg/dL (75-99)
[2016-08-21 07:41] LABS: HGB 6.8 gm/dL (11.4-16.0)
[2016-08-21] MEDS: BUDESONIDE 0.5 MG/2 ML NEBU INHALATION SCH (08:53)
[2016-08-21] MEDS: FORMOTEROL FUMARATE 20 MCG/2 ML NEBU INHALATION SCH (08:53)
--- NOTE | 2016-08-21 09:56 | P.DS ---
Providers Date of admission: 08/17/16 11:26 Expected date of discharge: 08/21/16 Attending physician: Cheng Dasilva Consults: 08/17/16 15:22 Consult Physician Routine Consulting Provider: Maikol Malloy Consult Reason/Comments: COPD, surgical clearance Do you want consulting provider notified?: Yes Primary care physician: Omid Chu - Discharge Diagnosis(es) (1) Fall Status: Acute (2) Fracture of right hip Status: Acute (3) Greater tuberosity of humerus fracture Status: Acute Hospital Course: This is a pleasant 71-year-old female who sustained a fall at home. She presented to [facility] were x-rays revealed greater tuberosity fracture and right fracture. After discussion consideration the patient elected to proceed with hemiarthroplasty of the right hip. The patient was cleared preoperatively for surgery. She underwent the procedure on 08/18/[address] Cheng Dasilva. The procedure was performed without competitions or sequelae. The patient is seen and evaluated at bedside this morning with Dr. Dasilva. Her pain is reasonably controlled. Tenderness about the right shoulder. She has good range of motion of her elbow wrist and fingers. Sensation and circulatory status is intact. On examination of her right lower extremity dressing is clean dry and intact. Incision looks fine with no erythema or active drainage. Calf is soft and nontender. She has good foot and ankle motion without difficulty. Patient's hemoglobin was noted to be 6.8 today and one unit has been ordered. The patient was also found of her right upper lobe nodule and has history of COPD. Plan is for more extensive evaluation of the lung seen outpatient setting by Dr. Jeronimo/Lidia swain per Dr. Torres's report. Pertinent Studies: Laboratory Tests 08/21/16 08/21/16 08/21/16 06:34 06:34 06:34 WBC 10.2 RBC 2.63 L Hgb 6.8 L* Hct 23.1 L MCV 87.9 MCH 26.0 MCHC 29.5 L RDW 17.1 H Plt Count 292 Hypochromasia Marked Anisocytosis Slight PT 21.6 H INR 2.2 Sodium 143 Potassium 4.7 Chloride 109 H Carbon Dioxide 26 Anion Gap 8 BUN 25 H Creatinine 0.48 L Est GFR (MDRD) Af Amer >60 Est GFR (MDRD) Non-Af >60 Glucose 108 H Calcium 8.7 Total Bilirubin 0.4 AST 51 H ALT 29 Alkaline Phosphatase 145 H Total Protein 6.7 Albumin 2.8 L Patient Condition at Discharge: Fair Plan - Discharge Summary New Discharge Prescriptions: Hydrocodone/Acetaminophen [[place] 5-325] 1 - 2 each PO Q6HR PRN #90 tab PRN Reason: Pain Sennosides-Docusate Sodium [Senokot-S] 2 tab PO DAILY #60 tablet Warfarin [Coumadin] 2.5 mg PO DAILY #27 tab clonazePAM [KlonoPIN] 0.5 mg PO BID #60 tablet predniSONE 0 mg PO DIRECTED #18 tab Discharge Medication List Acetaminophen Tab [Tylenol] 650 mg PO Q6H PRN 08/17/16 [History] Budesonide [Pulmicort] 0.5 mg INHALATION RT-BID 08/17/16 [History] Cyclobenzaprine [Flexeril] 10 mg PO TID 08/17/16 [History] Gabapentin 600 mg PO TID 08/17/16 [History] HYDROcodone/APAP 10-325MG [[place] 10-325] 1 tab PO QID PRN 08/17/16 [History] Hydrochlorothiazide [Hydrodiuril] 12.5 mg PO BID 08/17/16 [History] Ipratropium [place] [Atrovent Hfa] 2 puff INHALATION RT-QID PRN 08/17/16 [ History] SUMAtriptan SUCCINATE [Imitrex] 100 mg PO BID PRN 08/17/16 [History] Tiotropium [place] [Spiriva] 1 cap INHALATION RT-DAILY 08/17/16 [History] cloNIDine HCL [Catapres] 0.1 mg PO BID 08/17/16 [History] diphenhydrAMINE HCL [Benadryl] 25 mg PO BID PRN 08/17/16 [History] Budesonide [Pulmicort] 0.5 mg INHALATION RT-BID nebu 08/21/16 [Rx] Formoterol Fumarate [Perforomist] 20 mcg INHALATION RT-BID nebu 08/21/16 [Rx] HYDROcodone/APAP 5-325MG [[place] 5-325] 1 each PO Q6HR PRN #0 tab 08/21/16 [Rx] HYDROcodone/APAP 5-325MG [[place] 5-325] 2 each PO Q6HR PRN #0 tab 08/21/16 [Rx] Hydrocodone/Acetaminophen [[place] 5-325] 1 - 2 each PO Q6HR PRN #90 tab 08/21/16 [Rx] Ipratropium Nebulized [Atrovent Nebulized] 0.5 mg INHALATION RT-TID nebu [Rx] Levalbuterol Nebulized (Conc) [Xopenex Nebulized (Conc)] 1.25 mg INHALATION RT- TID nebule 08/21/16 [Rx] Magnesium Hydroxide [Milk of Magnesia Concentrate] 2,400 mg PO DAILY PRN #0 ml 08/21/16 [Rx] Metoprolol Tartrate [Lopressor] 12.5 mg PO BID tab 08/21/16 [Rx] Montelukast [Singulair] 10 mg PO HS tab 08/21/16 [Rx] Pantoprazole [Protonix] 40 mg PO AC-BRKFST tablet. 08/21/16 [Rx] Sennosides-Docusate Sodium [Senokot-S] 2 each PO HS tab 08/21/16 [Rx] Sennosides-Docusate Sodium [Senokot-S] 2 tab PO DAILY #60 tablet 08/21/16 [Rx] Warfarin [Coumadin] 2.5 mg PO DAILY #27 tab 08/21/16 [Rx] clonazePAM [KlonoPIN] 0.5 mg PO BID #60 tablet 08/21/16 [Rx] predniSONE 0 mg PO DIRECTED #18 tab 08/21/16 [Rx] Follow up Appointment(s)/Referral(s): Omid Sage MD [Primary Care Provider] - 2 Weeks Cheng Dasilva DO [Doctor of Osteopathic Medicine] - 09/03/16 2:50 pm Activity/Diet/Wound Care/Special Instructions: Weightbearing as tolerated with walker - right upper extremity nonweightbearing Follow hip precautions and use abductor pillow as instructed Daily dressing changes Keep incision clean and dry Call [facility] with questions or concerns [phone] Sling right upper extremity Discharge Disposition: TRANSFER TO SNF/ECF
--- NOTE | 2016-08-21 10:08 | CDI ---
In responding to this query, please exercise your independent professional judgment. The [facility] Coding Staff and Clinical Documentation Specialists appreciate your assistance in clarifying documentation, maintaining compliance with coding guidelines, accurately documenting patients condition and capturing severity of illness. The fact that a question is asked does not imply that any particular answer is desired or expected. Communication forms are a method of clarifying documentation and are not made part of the Legal Health Record. Thank you in advance for your clarification. Last Revision, April 2015 Álvaro Martínez [address] [facility] Hospitaltiffanie [place] [address] Documentation Clarification Form Date: 08/21/2016 9:58:00 AM From: tSanford Campbell, RN, BSN, CDI Admit Date: 08/17/2016 11:26:00 AM Patient Name: Ann Jones Visit Number: [id number] Dr. Cheng Dasilva/Erendira Munroe PAMj: A diagnosis of anemia lacks specificity to accurately reflect your patients severity of condition and clarification is needed. Patient history/risk factors: 71 yo female with history of severe COPD, presents s/p fall 2 days ago with c/o right shoulder and right hip pain. She is s/p right hip arthroplasty. EBL in OR 100ml. Clinical Indicators: Hemoglobin: 8.9/8.8/8.7/7.6/7.5/6.8 Hematocrit: 39.5/30.0/30.9/26.1/25.7/23.1 Treatment: 1U PRBC's, daily CBC's In order to capture the severity of condition, please clarify the type of anemia and etiology if known: Acute blood loss anemia Acute on chronic blood loss anemia Chronic blood loss anemia Iron deficiency anemia Nutritional anemia Anemia of chronic kidney disease Unable to determine Other, please specify Please document in your progress notes and discharge summary in order to capture severity of illness and risk of mortality. Include clinical findings that support your diagnosis. FYI: Press F11 to launch patient chart. Place X here if this finding has no clinical significance, is not applicable or if you are not able to provide any additional documentation. CRISTINOD
[2016-08-21 12:10] LABS: Glucose,Whole Blood 161 mg/dL (75-99)
[2016-08-21] MEDS: cloNIDine HCL 0.1 MG TAB PO SCH (12:30)
--- NOTE | 2016-08-21 13:25 | P.PN ---
Subjective Principal diagnosis: Fall with right hip and right humerus fracture Patient seen and examined. Patient states that her breathing is better. She does have an occasional cough. She is planning to be discharged to rehab today. She is receiving 1 unit of packed red blood cells due to low hemoglobin today. Objective - Vital Signs Vital signs: Vital Signs Temp 97.7 F 08/21/16 12:01 Pulse 92 08/21/16 13:17 Resp 16 08/21/16 13:17 BP 133/66 08/21/16 13:17 Pulse Ox 96 08/21/16 11:54 Intake & Output 08/20/16 08/21/16 08/21/16 18:59 06:59 18:59 Intake Total 740 1239.5 480 Output Total 500 500 Balance 240 1239.5 -20 Weight 57.153 kg 57.153 kg Intake: IV 500 937.5 Sodium Chloride 0.9% 1, 500 937.5 000 ml @ 75 mls/hr IV . [id number] VERONICA Rx#:[id number] Oral 240 300 480 Blood Product 0 Rc As-3 Unit 0 [id number] Lipid 2 Sodium Chloride 0.9% 1, 2 000 ml @ 75 mls/hr IV . [id number] VERONICA Rx#:[id number] Output: Urine 500 500 Other: Voiding Method Indwelling Catheter Toilet Toilet Diaper # Voids 2 2 2 - Exam Gen: A+OX3, NAD, cachexia CV: RRR, s1/s2 Lungs: Diminished breath sounds bilaterally Abd: soft, NT/ND, +BS Ext: no edema, right hip dressing C/D/I, RUE in sling - Labs CBC & Chem 7: 08/21/16 06:34 08/21/16 06:34 Labs: Abnormal Lab Results - Last 24 Hours (Table) 08/20/16 08/20/16 08/21/16 Range/Units 16:54 20:27 06:34 RBC (3.80-5.40) m/uL Hgb (11.4-16.0) gm/dL Hct (34.0-46.0) % MCHC (31.0-37.0) g/dL RDW (11.5-15.5) % PT 21.6 H (9.0-12.0) sec Chloride (98-107) mmol/L BUN (7-17) mg/dL Creatinine (0.52-1.04) mg/dL Glucose (74-99) mg/dL POC Glucose (mg/dL) 147 H 118 H (75-99) mg/dL AST (14-36) U/L Alkaline Phosphatase (38-126) U/L Albumin (3.5-5.0) g/dL Crossmatch 08/21/16 08/21/16 08/21/16 Range/Units 06:34 06:34 07:10 RBC 2.63 L (3.80-5.40) m/uL Hgb 6.8 L* (11.4-16.0) gm/dL Hct 23.1 L (34.0-46.0) % MCHC 29.5 L (31.0-37.0) g/dL RDW 17.1 H (11.5-15.5) % PT (9.0-12.0) sec Chloride 109 H (98-107) mmol/L BUN 25 H (7-17) mg/dL Creatinine 0.48 L (0.52-1.04) mg/dL Glucose 108 H (74-99) mg/dL POC Glucose (mg/dL) 114 H (75-99) mg/dL AST 51 H (14-36) U/L Alkaline Phosphatase 145 H (38-126) U/L Albumin 2.8 L (3.5-5.0) g/dL Crossmatch 08/21/16 08/21/16 Range/Units 08:10 12:07 RBC (3.80-5.40) m/uL Hgb (11.4-16.0) gm/dL Hct (34.0-46.0) % MCHC (31.0-37.0) g/dL RDW (11.5-15.5) % PT (9.0-12.0) sec Chloride (98-107) mmol/L BUN (7-17) mg/dL Creatinine (0.52-1.04) mg/dL Glucose (74-99) mg/dL POC Glucose (mg/dL) 161 H (75-99) mg/dL AST (14-36) U/L Alkaline Phosphatase (38-126) U/L Albumin (3.5-5.0) g/dL Crossmatch See Detail Assessment and Plan Plan: AECOPD Cystic lung disease: differential includes SCHWAB, Histiocytosis X, cystic bronchiectasis, LIP/DIP, HP, other Bronchiectasis Pulmonary cachexia Active tobacco abuse s/p fall with right hip and humerus fractures Anemia Hypertension Dehydration POA UTI POA, culture pending O2 to maintain sat > or = 88% Continue Duonebs and Pulmicort, Perforomist IS and pulmonary hygiene Pain control PT and OT Smoking cessation is highly recommended Outpatient PFT 1 unit PRBC being transfused, plan for discharge after transfusion Patient will need surgical lung biopsy, [facility]: Protonix and Coumadin Outpatient pulmonary follow up for cystic lung disease Okay to discharge from pulmonary standpoint
[2016-08-21 15:09] VITALS: BP 128/60; TEMP 98
[2016-08-21 16:06] VITALS: PULSE 105
[2016-08-21 16:15] LABS: Anisocytosis Slight; CH 26.7; CHCM 30.3; HCT 27.7 % (34.0-46.0); HDW 4.41; Hypochromasia Marked; MCH 26.9 pg (25.0-35.0); MCHC 30.5 g/dL (31.0-37.0); MCV 88.3 fL (80.0-100.0); Mean Platelet Volume 6.5; Poikilocytosis Moderate; RBC 3.14 m/uL (3.80-5.40); RDW 16.3 % (11.5-15.5); WBC 12.6 k/uL (3.8-10.6)
[2016-08-21 16:16] LABS: HGB 8.5 gm/dL (11.4-16.0)
[2016-08-21 16:54] LABS: Glucose,Whole Blood 130 mg/dL (75-99)
[2016-08-23 22:38] LABS: Alternaria tenius IgG 5.5 mcg/mL (< 13.6); Cladosporium herbarium IgG 10.9 mcg/mL (< 14.7); Saccaharomospora viridis Not detected (Not detected); Saccaharopoly. rectivirgula Not detected (Not detected)
== END 2016-08-21 17:47 | DRG 469 ==
LOC: EDBD → SUPCPDRO 06:31 → EC 06:31 → 3SUR 11:26
PROVIDERS: ADMIT Orthopaedic Surgery; ATTEND Orthopaedic Surgery
PROC: 0SRR0JA Replacement of Right Hip Joint, Femoral Surface with Synthetic Substitute, Uncemented, Open Approach (ICD-10-PCS; principal; 2016-08-18 07:30)
DX: S72.011A Unspecified intracapsular fracture of right femur, initial encounter for closed fracture (principal); J18.9 Pneumonia, unspecified organism; J44.0 Chronic obstructive pulmonary disease with (acute) lower respiratory infection; S42.251A Displaced fracture of greater tuberosity of right humerus, initial encounter for closed fracture; J44.1 Chronic obstructive pulmonary disease with (acute) exacerbation; N39.0 Urinary tract infection, site not specified; E86.0 Dehydration; J84.10 Pulmonary fibrosis, unspecified; I10 Essential (primary) hypertension; D63.8 Anemia in other chronic diseases classified elsewhere; F41.1 Generalized anxiety disorder; F17.200 Nicotine dependence, unspecified, uncomplicated; G43.909 Migraine, unspecified, not intractable, without status migrainosus; R91.1 Solitary pulmonary nodule; R00.0 Tachycardia, unspecified; Z79.899 Other long term (current) drug therapy; W01.0XXA Fall on same level from slipping, tripping and stumbling without subsequent striking against object, initial encounter; Y92.009 Unspecified place in unspecified non-institutional (private) residence as the place of occurrence of the external cause
CPT/HCPCS: 71010; 71250; 73501; 73502; 80048; 80053; 81001; 82785; 83036; 85025; 85027; 85610; 85730; 86001; 86003; 86606; 86609; 86850; 86900; 86901; 86920; 87086; 87502; 88305; 88311; 93005; 94640; 94760; 96374; 96375; 96376; 99285

== ENCOUNTER → 2016-11-05 | Outpatient (CLI) | payer MEDICARE, OTHER ==
--- NOTE | 2016-11-05 23:17 | MR ---
MRI scan cervical spine History neck pain. Comparison none. TECHNIQUE: Multiplanar multiecho imaging of the cervical spine was performed with no contrast. FINDINGS: Cervical vertebra have normal alignment. Disc spaces are fairly normal. There is a small posterior di sc bulge at C4-5. There is no spinal stenosis. Cervical spinal cord has normal signal pattern. There is no sign of edema. Brainstem appears normal. There is no sign of a fracture. The remainder of the e xam is unremarkable. CONCLUSION: Minimal posterior disc bulging at C4-5. Otherwise negative exam. No fracture. No spinal stenosis. MRI scan lumbar spine. Comparison none. TECHNIQUE: Multiplanar multi echo imaging of the lumbar spine was performed with no contrast. FINDINGS: The lumbar vertebrae have normal alignment. There is degenerative disc space narrowing throughout the lumbar spine and Jennings noticeable at L5-S1. There is posterior disc bulging from L2 to S1. This is m ore severe at L3-4. I see no focal bone destruction. There is no evidence of lumbar paraspinal mass. There is a developmentally adequate spinal canal. There is narrowing of the right side neural foramen at L4-5 due to facet arthropathy and disc space narrowing. There is lateral recess stenosis due to e xtensive facet arthropathy at L4-5. CONCLUSION: Multilevel spondylosis. Lateral recess stenosis due to facet arthropathy that is worse at L4-5 on the right side. Multilevel posterior disc bulging and mild herniation. No significant spinal stenosis.
== END | disposition home or self-care (01) ==
LOC: RADMRIMAIN 17:02
PROVIDERS: ATTEND Anesthesiology Pain Medicine
DX: M50.221 Other cervical disc displacement at C4-C5 level (principal); M99.73 Connective tissue and disc stenosis of intervertebral foramina of lumbar region; M51.26 Other intervertebral disc displacement, lumbar region; M47.816 Spondylosis without myelopathy or radiculopathy, lumbar region
CPT/HCPCS: 72141; 72148

== ENCOUNTER 2017-07-19 13:16 | Observation (INO) | payer MEDICARE, OTHER ==
[2017-07-19] MEDS ORDERED: SODIUM CHLORIDE 0.9% 1,000 ML IV STA ×2 (13:36)
--- NOTE | 2017-07-19 13:39 | ED ---
General Adult HPI - General Chief complaint: Altered Mental Status Stated complaint: ALTERED MENTAL STATUS Time Seen by Provider: 07/19/17 13:24 Source: patient, EMS, RN notes reviewed, old records reviewed Mode of arrival: EMS Limitations: altered mental status - History of Present Illness Initial comments: This is a 72-year-old female to the ER for evaluation. Patient brought in for evaluation regarding altered mental state. Patient unable to give history, EMS unsure patient history. EMS was called secondary to patient being offered but unknown baseline. Patient herself has no complaints but is also unable to answer questions - Related Data Home Medications Medication Instructions Recorded Confirmed Budesonide [Pulmicort] 0.5 mg INHALATION RT-BID 08/17/16 04/06/17 Cyclobenzaprine [Flexeril] 10 mg PO TID 08/17/16 04/06/17 Gabapentin 600 mg PO TID 08/17/16 04/06/17 Hydrochlorothiazide [Hydrodiuril] 12.5 mg PO BID 08/17/16 04/06/17 Ipratropium [place] [Atrovent Hfa] 2 puff INHALATION RT-QID PRN 08/17/16 SUMAtriptan SUCCINATE [Imitrex] 100 mg PO BID PRN 08/17/16 04/06/17 Tiotropium [place] [Spiriva] 1 cap INHALATION RT-DAILY 08/17/16 04/06/17 cloNIDine HCL [Catapres] 0.1 mg PO BID 08/17/16 07/19/17 PARoxetine HCL [Paxil] 40 mg PO DAILY 04/06/17 04/06/17 Previous Rx's Medication Instructions Recorded Formoterol Fumarate [Perforomist] 20 mcg INHALATION RT-BID nebu 08/21/16 Ipratropium Nebulized [Atrovent 0.5 mg INHALATION RT-TID nebu 08/21/16 Nebulized] Levalbuterol Nebulized (Conc) 1.25 mg INHALATION RT-TID nebule 08/21/16 [Xopenex Nebulized (Conc)] clonazePAM [KlonoPIN] 0.5 mg PO BID #60 tablet 08/21/16 Hydrocodone/Acetaminophen [[place] 1 tab PO Q6HR PRN #15 tab 04/06/17 5-325] Allergies Allergy/AdvReac Type Severity Reaction Status Date / Time No Known Allergies Allergy Verified 07/19/17 14:46 Review of Systems ROS Statement: Those systems with pertinent positive or pertinent negative responses have been documented in the HPI. ROS Other: All systems not noted in ROS Statement are negative. Past Medical History Past Medical History: COPD, Hypertension History of Any Multi-Drug Resistant Organisms: None Reported Past Surgical History: Hysterectomy Additional Past Surgical History / Comment(s): Right hip and arm repair Past Psychological History: No Psychological Hx Reported Smoking Status: Current every day smoker Past Alcohol Use History: None Reported Past Drug Use History: None Reported - Past Family History Mother Additional Family Medical History / Comment(s): unable to verbalize General Exam Limitations: altered mental status General appearance: alert, in no apparent distress Head exam: Present: atraumatic, normocephalic, normal inspection Eye exam: Present: normal appearance, PERRL, EOMI. Absent: scleral icterus, conjunctival injection, periorbital swelling ENT exam: Present: normal exam, mucous membranes moist Neck exam: Present: normal inspection. Absent: tenderness, meningismus, lymphadenopathy Respiratory exam: Present: normal lung sounds bilaterally. Absent: respiratory distress, wheezes, rales, rhonchi, stridor Cardiovascular Exam: Present: regular rate, normal rhythm, normal heart sounds. Absent: systolic murmur, diastolic murmur, rubs, gallop, clicks GI/Abdominal exam: Present: soft, normal bowel sounds. Absent: distended, tenderness, guarding, rebound, rigid Extremities exam: Present: normal inspection, full ROM, normal capillary refill. Absent: tenderness, pedal edema, joint swelling, calf tenderness Back exam: Present: normal inspection Neurological exam: Present: alert, oriented X3, CN II-XII intact Psychiatric exam: Present: normal affect, normal mood Skin exam: Present: warm, dry, intact, normal color. Absent: rash EKG Findings - EKG Comments: EKG Findings:: EKG shows sinus tachycardia rate 107, RI 134, QRS 80, QTC 469 Medical Decision Making - Medical Decision Making 72 female the ER for evaluation regarding altered mental status. Patient's poor historian, EMS, was confusing regarding possible overdose versus contact the nausea and vomiting. Patient is over that it wasn't, able to give accurate history but is vomiting upon arrival to emergency room. Patient be admitted admitted for further monitoring of altered mental state and baseline mental status. - Lab Data Result diagrams: 07/19/17 13:50 07/19/17 13:50 Lab Results 07/19/17 07/19/17 07/19/17 Range/Units 13:50 13:50 13:50 WBC 8.8 (3.8-10.6) k/uL RBC 4.22 (3.80-5.40) m/uL Hgb 10.9 L (11.4-16.0) gm/dL Hct 36.0 (34.0-46.0) % MCV 85.4 (80.0-100.0) fL MCH 25.8 (25.0-35.0) pg MCHC 30.2 L (31.0-37.0) g/dL RDW 16.5 H (11.5-15.5) % Plt Count 316 (150-450) k/uL Neutrophils % 79 % Lymphocytes % 12 % Monocytes % 6 % Eosinophils % 1 % Basophils % 1 % Neutrophils # 7.0 (1.3-7.7) k/uL Lymphocytes # 1.0 (1.0-4.8) k/uL Monocytes # 0.5 (0-1.0) k/uL Eosinophils # 0.1 (0-0.7) k/uL Basophils # 0.1 (0-0.2) k/uL Hypochromasia Marked Anisocytosis Slight PT (9.0-12.0) sec INR (<1.2) APTT (22.0-30.0) sec Sodium 145 (137-145) mmol/L Potassium 3.8 (3.5-5.1) mmol/L Chloride 107 (98-107) mmol/L Carbon Dioxide 25 (22-30) mmol/L Anion Gap 13 mmol/L BUN 26 H (7-17) mg/dL Creatinine 0.60 (0.52-1.04) mg/dL Est GFR (MDRD) Af Amer >60 (>60 ml/min/1.73 sqM) Est GFR (MDRD) Non-Af >60 (>60 ml/min/1.73 sqM) Glucose 108 H (74-99) mg/dL Plasma Lactic Acid Finesse (0.7-2.0) mmol/L Calcium 9.8 (8.4-10.2) mg/dL Phosphorus 3.7 (2.5-4.5) mg/dL Magnesium 2.0 (1.6-2.3) mg/dL Total Bilirubin 0.4 (0.2-1.3) mg/dL AST 78 H (14-36) U/L ALT 53 H (9-52) U/L Alkaline Phosphatase 422 H (38-126) U/L Total Creatine Kinase 487 H (30-135) U/L CK-MB (CK-2) 6.4 H* (0.0-2.4) ng/mL CK-MB (CK-2) Rel Index 1.3 Troponin I 0.021 (0.000-0.034) ng/mL Total Protein 9.5 H (6.3-8.2) g/dL Albumin 4.2 (3.5-5.0) g/dL Urine Color Urine Appearance (Clear) Urine pH (5.0-8.0) Ur Specific [place] (1.001-1.035) Urine Protein (Negative) Urine Glucose (UA) (Negative) Urine Ketones (Negative) Urine Blood (Negative) Urine Nitrite (Negative) Urine Bilirubin (Negative) Urine Urobilinogen (<2.0) mg/dL Ur Leukocyte Esterase (Negative) Urine WBC (0-5) /hpf Amorphous Sediment (None) /hpf Urine Bacteria (None) /hpf Urine Mucus (None) /hpf Urine Opiates Screen (NotDetected) Ur Oxycodone Screen (NotDetected) Urine Methadone Screen (NotDetected) Ur Propoxyphene Screen (NotDetected) Ur Barbiturates Screen (NotDetected) U Tricyclic Antidepress (NotDetected) Ur Phencyclidine Scrn (NotDetected) Ur Amphetamines Screen (NotDetected) U Methamphetamines Scrn (NotDetected) U Benzodiazepines Scrn (NotDetected) Urine Cocaine Screen (NotDetected) U Marijuana (THC) Screen (NotDetected) 07/19/17 07/19/17 07/19/17 Range/Units 13:50 13:50 14:24 WBC (3.8-10.6) k/uL RBC (3.80-5.40) m/uL Hgb (11.4-16.0) gm/dL Hct (34.0-46.0) % MCV (80.0-100.0) fL MCH (25.0-35.0) pg MCHC (31.0-37.0) g/dL RDW (11.5-15.5) % Plt Count (150-450) k/uL Neutrophils % % Lymphocytes % % Monocytes % % Eosinophils % % Basophils % % Neutrophils # (1.3-7.7) k/uL Lymphocytes # (1.0-4.8) k/uL Monocytes # (0-1.0) k/uL Eosinophils # (0-0.7) k/uL Basophils # (0-0.2) k/uL Hypochromasia Anisocytosis PT 10.2 (9.0-12.0) sec INR 1.0 (<1.2) APTT 22.9 (22.0-30.0) sec Sodium (137-145) mmol/L Potassium (3.5-5.1) mmol/L Chloride (98-107) mmol/L Carbon Dioxide (22-30) mmol/L Anion Gap mmol/L BUN (7-17) mg/dL Creatinine (0.52-1.04) mg/dL Est GFR (MDRD) Af Amer (>60 ml/min/1.73 sqM) Est GFR (MDRD) Non-Af (>60 ml/min/1.73 sqM) Glucose (74-99) mg/dL Plasma Lactic Acid Finesse 1.1 (0.7-2.0) mmol/L Calcium (8.4-10.2) mg/dL Phosphorus (2.5-4.5) mg/dL Magnesium (1.6-2.3) mg/dL Total Bilirubin (0.2-1.3) mg/dL AST (14-36) U/L ALT (9-52) U/L Alkaline Phosphatase (38-126) U/L Total Creatine Kinase (30-135) U/L CK-MB (CK-2) (0.0-2.4) ng/mL CK-MB (CK-2) Rel Index Troponin I (0.000-0.034) ng/mL Total Protein (6.3-8.2) g/dL Albumin (3.5-5.0) g/dL Urine Color Urine Appearance (Clear) Urine pH (5.0-8.0) Ur Specific [place] (1.001-1.035) Urine Protein (Negative) Urine Glucose (UA) (Negative) Urine Ketones (Negative) Urine Blood (Negative) Urine Nitrite (Negative) Urine Bilirubin (Negative) Urine Urobilinogen (<2.0) mg/dL Ur Leukocyte Esterase (Negative) Urine WBC (0-5) /hpf Amorphous Sediment (None) /hpf Urine Bacteria (None) /hpf Urine Mucus (None) /hpf Urine Opiates Screen Not Detected (NotDetected) Ur Oxycodone Screen Not Detected (NotDetected) Urine Methadone Screen Not Detected (NotDetected) Ur Propoxyphene Screen Not Detected (NotDetected) Ur Barbiturates Screen Not Detected (NotDetected) U Tricyclic Antidepress Detected H (NotDetected) Ur Phencyclidine Scrn Not Detected (NotDetected) Ur Amphetamines Screen Not Detected (NotDetected) U Methamphetamines Scrn Not Detected (NotDetected) U Benzodiazepines Scrn Not Detected (NotDetected) Urine Cocaine Screen Not Detected (NotDetected) U Marijuana (THC) Screen Not Detected (NotDetected) 07/19/17 Range/Units 14:28 WBC (3.8-10.6) k/uL RBC (3.80-5.40) m/uL Hgb (11.4-16.0) gm/dL Hct (34.0-46.0) % MCV (80.0-100.0) fL MCH (25.0-35.0) pg MCHC (31.0-37.0) g/dL RDW (11.5-15.5) % Plt Count (150-450) k/uL Neutrophils % % Lymphocytes % % Monocytes % % Eosinophils % % Basophils % % Neutrophils # (1.3-7.7) k/uL Lymphocytes # (1.0-4.8) k/uL Monocytes # (0-1.0) k/uL Eosinophils # (0-0.7) k/uL Basophils # (0-0.2) k/uL Hypochromasia Anisocytosis PT (9.0-12.0) sec INR (<1.2) APTT (22.0-30.0) sec Sodium (137-145) mmol/L Potassium (3.5-5.1) mmol/L Chloride (98-107) mmol/L Carbon Dioxide (22-30) mmol/L Anion Gap mmol/L BUN (7-17) mg/dL Creatinine (0.52-1.04) mg/dL Est GFR (MDRD) Af Amer (>60 ml/min/1.73 sqM) Est GFR (MDRD) Non-Af (>60 ml/min/1.73 sqM) Glucose (74-99) mg/dL Plasma Lactic Acid Finesse (0.7-2.0) mmol/L Calcium (8.4-10.2) mg/dL Phosphorus (2.5-4.5) mg/dL Magnesium (1.6-2.3) mg/dL Total Bilirubin (0.2-1.3) mg/dL AST (14-36) U/L ALT (9-52) U/L Alkaline Phosphatase (38-126) U/L Total Creatine Kinase (30-135) U/L CK-MB (CK-2) (0.0-2.4) ng/mL CK-MB (CK-2) Rel Index Troponin I (0.000-0.034) ng/mL Total Protein (6.3-8.2) g/dL Albumin (3.5-5.0) g/dL Urine Color Yellow Urine Appearance Cloudy H (Clear) Urine pH 7.5 (5.0-8.0) Ur Specific [place] 1.019 (1.001-1.035) Urine Protein 1+ H (Negative) Urine Glucose (UA) Negative (Negative) Urine Ketones Negative (Negative) Urine Blood Negative (Negative) Urine Nitrite Negative (Negative) Urine Bilirubin Negative (Negative) Urine Urobilinogen <2.0 (<2.0) mg/dL Ur Leukocyte Esterase Negative (Negative) Urine WBC 1 (0-5) /hpf Amorphous Sediment Rare H (None) /hpf Urine Bacteria Few H (None) /hpf Urine Mucus Occasional H (None) /hpf Urine Opiates Screen (NotDetected) Ur Oxycodone Screen (NotDetected) Urine Methadone Screen (NotDetected) Ur Propoxyphene Screen (NotDetected) Ur Barbiturates Screen (NotDetected) U Tricyclic Antidepress (NotDetected) Ur Phencyclidine Scrn (NotDetected) Ur Amphetamines Screen (NotDetected) U Methamphetamines Scrn (NotDetected) U Benzodiazepines Scrn (NotDetected) Urine Cocaine Screen (NotDetected) U Marijuana (THC) Screen (NotDetected) - Radiology Data Radiology results: report reviewed (CT brain and chest x-ray are negative for acute disease), image reviewed Disposition Clinical Impression: Altered mental status, Nausea & vomiting, Weakness, Drug overdose Disposition: ADMITTED IP TO THIS [facility] Condition: Fair Referrals: Omid Sage MD [Primary Care Provider] - 1-2 days
[2017-07-19 14:05] LABS: Anisocytosis Slight; Basophils # (A) 0.1 k/uL (0-0.2); Basophils % (A) 1 %; Eosinophils # (A) 0.1 k/uL (0-0.7); Eosinophils % (A) 1 %; HGB 10.9 gm/dL (11.4-16.0); Hypochromasia Marked; Lymphocytes % (A) 12 %; MCH 25.8 pg (25.0-35.0); MCHC 30.2 g/dL (31.0-37.0); MCV 85.4 fL (80.0-100.0); Mean Platelet Volume 6.6; Monocytes # (A) 0.5 k/uL (0-1.0); Monocytes % (A) 6 %; Neutrophils % (A) 79 %; Platelet Count 316 k/uL (150-450); RBC 4.22 m/uL (3.80-5.40); RDW 16.5 % (11.5-15.5); WBC 8.8 k/uL (3.8-10.6)
--- NOTE | 2017-07-19 14:09 | CT ---
EXAMINATION TYPE: CT brain wo con DATE OF EXAM: 07/19/2017 COMPARISON: NONE HISTORY: 72-year-old female with weakness, confusion, altered mental status TECHNIQUE: Examination was done in axial plane without intravenous contrast. Coronal and sagittal r econstructions performed. CT DLP: 1156 mGycm Automated exposure control for dose reduction was used. FINDINGS: Prominent skull base artifacts especially in the region of the right prepontine cistern. Allowing for this limitation, there is no evidence of acute intracranial hemorrhage, acute ischemic changes, mass, mass-effect, or extra-axial fluid collection. There is no effacement of cerebral sulc i or basal subarachnoid cisterns. There is no hydrocephalus. There is no midline shift. Rivera-white matter distinction is preserved. Patchy periventricular and deep white matter hypodensities. Paranasal sinuses and mastoid air cells are well pneumatized. Orbits and globes are intact. IMPRESSION: Some prominent skull base artifacts. Allowing for this limitation, no acute intracranial abnormality seen.
--- NOTE | 2017-07-19 14:12 | XR ---
EXAMINATION TYPE: XR chest 2V DATE OF EXAM: 07/19/2017 COMPARISON: None HISTORY: 72-year-old female with weakness TECHNIQUE: Frontal and lateral views FINDINGS: The heart is normal size. Aorta and pulmonary vasculature within normal limits. Hyperinflation. Mediu m diffuse reticular opacities are present throughout. Calcified bilateral breast implants. Redemonstr ated nodular density right upper lobe. No briana consolidation or pleural effusion. IMPRESSION: 1. Overall stable appearance to extensive interstitial parenchymal changes. Correlate to exclude unde rlying fibrosis and/or atypical infections. 2. Query if the patient has undergone evaluation for the previously mentioned right upper lobe nodule which still persists and may be slightly larger currently. Underlying lung cancer is not excluded.
[2017-07-19 14:13] LABS: Partial Thromboplastin Time 22.9 sec (22.0-30.0); Prothrombin Time 10.2 sec (9.0-12.0)
[2017-07-19 14:19] LABS: ALT 53 U/L (9-52); AST 78 U/L (14-36); Albumin 4.2 g/dL (3.5-5.0); Alkaline Phosphatase 422 U/L (38-126); Anion Gap 13 mmol/L; Blood Urea Nitrogen 26 mg/dL (7-17); Calcium 9.8 mg/dL (8.4-10.2); Carbon Dioxide 25 mmol/L (22-30); Chloride 107 mmol/L (98-107); Glucose 108 mg/dL (74-99); Phosphorus 3.7 mg/dL (2.5-4.5); Potassium 3.8 mmol/L (3.5-5.1); Sodium 145 mmol/L (137-145); Total Bilirubin 0.4 mg/dL (0.2-1.3); Total Protein 9.5 g/dL (6.3-8.2)
[2017-07-19 14:42] LABS: Troponin I 0.021 ng/mL (0.000-0.034)
[2017-07-19 14:45] LABS: Creatine Kinase MB 6.4 ng/mL (0.0-2.4)
[2017-07-19 15:54] LABS: Amorphous Sediment,Urine Rare /hpf; Appearance,Urine Cloudy (Clear); Bacteria,Urine Few /hpf; Bilirubin,Urine Negative (Negative); Blood,Urine Negative (Negative); Color,Urine Yellow; Glucose,Urine (UA) Negative (Negative); Ketones,Urine Negative (Negative); Leukocyte Esterase,Urine Negative (Negative); Mucus,Urine Occasional /hpf; Nitrite,Urine Negative (Negative); PH, Urine 7.5 (5.0-8.0); Protein,Urine 1+ (Negative); Specific Gravity,Urine 1.019 (1.001-1.035); Urobilinogen,Urine <2.0 mg/dL (<2.0); WBC,Urine 1 /hpf (0-5)
[2017-07-19] MEDS ORDERED: MORPHINE SULFATE 4 MG/ML SYRINGE IVP STA (16:22)
[2017-07-19] MEDS ORDERED: LORazepam 2 MG/ML INJ IV STA (16:22)
[2017-07-19 16:43] LABS: Amphetamine Screen,Urine Not Detected (NotDetected); Barbiturate Screen,Urine Not Detected (NotDetected); Benzodiazepines Screen,Urine Not Detected (NotDetected); Cocaine Screen,Urine Not Detected (NotDetected); Methadone Screen, Urine Not Detected (NotDetected); Opiate Screen,Urine Not Detected (NotDetected); Oxycodone Screen, Urine Not Detected (NotDetected); Phencyclidine Screen,Urine Not Detected (NotDetected); Tricyclic Antidepressant,Urine Detected (NotDetected); Urn Cannabinoid Scrn Not Detected (NotDetected)
[2017-07-19] MEDS ORDERED: PANTOPRAZOLE 40 MG/10 ML VIAL IVP STA (16:48)
[2017-07-19] MEDS ORDERED: ONDANSETRON 4 MG/2 ML VIAL IVP STA (16:48)
--- NOTE | 2017-07-19 17:34 | US ---
EXAMINATION TYPE: US gallbladder DATE OF EXAM: 07/19/2017 COMPARISON: NONE CLINICAL HISTORY: 72 year-old female with abdominal Pain, nausea. TECHNIQUE: Multiple sonographic images of the right upper quadrant are obtained. FINDINGS: OPTOMECHANICAL TECHNICIAN NOTES: Difficult and limited study due to patient confusion. Patient is sitting up in bed and would not lie back- images scanned intercostal. Patient moving and moaning during exam making im aging blurry. Liver Length: 12.6 cm Gallbladder Wall: 0.2 cm CBD: 0.5 cm Right Kidney: 8.8 x 4.1 x 3.9 cm Pancreas: Obscured by bowel gas Liver: Limited visualization due to patient limitations. Two hypoechoic areas visualized in the left lobe, largest measuring 1.6 x 1.6 x 1.8 cm, possible cyst but not well assessed due to above limitat ions. Gallbladder: No abnormal distention, wall thickening, pericholecystic fluid, or shadowing calculi. Evidence for sonographic Carver's sign: No CBD: wnl as visualized, distal portion is obscured by bowel gas Right Kidney: Mild pelvicaliectasis. There is a midpole cyst measuring 1 cm. IMPRESSION: 1. Significant limitations in the exam is described above. 2. Two hypoechoic lesions in the liver measuring up to 1.8 cm. Cysts are suspected. Recommended follo w-up ultrasound to reassess when patient cooperative. 3. Mild right-sided pelvicaliectasis which could be transient. If concern for developing hydronephros is, short interval follow-up can be performed.
[2017-07-19] MEDS ORDERED: LABETALOL 200 MG TAB PO STA (18:11)
--- NOTE | 2017-07-19 20:47 | HP ---
HISTORY AND PHYSICAL CHIEF COMPLAINT: Change in mental status. I am covering for Dr. Sage. HISTORY OF PRESENT ILLNESS: This 72-year-old woman with a past medical history of multiple medical problems including COPD, hypertension, history of hysterectomy, being followed by Dr. Sage in the outpatient setting is apparently a smoker too. The patient apparently living with the daughter, the patient apparently was taken to [facility] emergency room with change in mental status, and the patient is confused at this time. Apparently the daughter, who came after the mother, became sick while the patient was in the room and the pupils were dilated for both the mother and daughter according to the staff nurse, the daughter apparently went into respiratory arrest subsequently and was mechanically intubated and admitted to ICU. The patient is confused and is being closely monitored. Drug overdose was suspected. Initial CT scan of the brain did not show any acute abnormality. Some artifacts are noted. LFTs elevated and hepatic panel has been sought and ultrasound of the gallbladder showed hyperechoic lesions in the liver only. There is no history of any trauma at this time. PAST MEDICAL HISTORY: History of COPD, hypertension and hysterectomy. MEDICATIONS PRIOR TO ADMISSION: Include: 1. Klonopin 0.5 mg b.i.d. 2. Catapres 0.1 b.i.d. 3. Spiriva 1 puff daily. 4. Imitrex 100 mg b.i.d. 5. Paxil 40 mg. 6. Xopenex 1.5 t.i.d. 7. Ativan 0.5 t.i.d. 8. [place] 1 tablet every 6 hours p.r.n. 9. HydroDIURIL 12.5 mg b.i.d. 10.Gabapentin 600 mg p.o. t.i.d. 11.Perforomist 20 mg p.o. b.i.d. 12.Flexeril 10 mg p.o. t.i.d. 13.Pulmicort 0.5 mg b.i.d. ALLERGIES: None. Family history, social history and review of systems could not be taken because of the change in mental status. PHYSICAL EXAM: The pulse is 115, blood pressure 140/98, respiratory rate 20, temperature normal , pulse ox 98% on 2 L. HEENT: Conjunctivae normal. Oral mucosa moist. Neck is no jugular venous distention. No carotid bruit. No lymph node enlargement. Cardiovascular system: S1, S2 muffled. Respiratory system: Breath sounds are diminished in the bases. A few scattered rhonchi. No added sounds. ABDOMEN: Soft, nontender. No mass palpable. Legs: No edema and no swelling. Nervous system: The patient unable to cooperate with full exam. Appears to be moving all 4 limbs. SKIN: No ulcer, rash, or bleeding. Lymphatics: No lymph nodes palpable in the neck, axillae or groin. Joints: No active deforming arthropathy. LABS: WBC 8.8, hemoglobin 10.9, INR is 1, BUN is 26, and AST 78, ALT is 53, alkaline phosphatase 422. CK-MB is 487. UA noted. Drug screen is positive for . ASSESSMENT: 1. Change in mental status, possibly acute metabolic encephalopathy secondary to drug overdose. 2. Increased AST, ALT, alkaline phosphatase. 3. Anemia, normocytic anemia of chronic disease. 4. Chronic obstructive pulmonary disease. 5. Hypertension. 6. History of hysterectomy. 7. History of nicotine dependence. RECOMMENDATIONS AND DISCUSSION: This 72-year-old woman who presented with multiple complex medical issues, we will monitor the patient closely, continue the current medications, continue management and symptomatic treatment. Otherwise at this time I recommend symptomatic treatment. We will consult Neurology and we will continue to monitor. Continue to monitor. I would also recommend a psychiatric consultation as well. Prognosis guarded because of the multiple complex medical issues and guarded prognosis. Further recommendations to follow. MMODL / IJN: [id number] / MTDD
[2017-07-19] MEDS: ONDANSETRON 4 MG/2 ML VIAL IVP PRN (20:58)
[2017-07-19] MEDS: HEPARIN SODIUM,PORCINE 5,000 UNIT/ML 1 ML VIAL SQ SCH (21:01)
[2017-07-19] MEDS ORDERED: cloNIDine HCL 0.1 MG TAB PO STA (21:52)
[2017-07-19 23:46] LABS: Hepatitis A Antibody IgM Non-Reactive (Non-Reactive); Hepatitis B Core IgM Non-Reactive (Non-Reactive)
[2017-07-20 04:57] VITALS: BMI 18.9
[2017-07-20] MEDS: HEPARIN SODIUM,PORCINE 5,000 UNIT/ML 1 ML VIAL SQ SCH ×2 (07:27→20:20)
[2017-07-20 08:04] LABS: Anisocytosis Slight; Basophils # (A) 0.1 k/uL (0-0.2); Basophils % (A) 1 %; Eosinophils # (A) 0.1 k/uL (0-0.7); Eosinophils % (A) 1 %; HGB 9.9 gm/dL (11.4-16.0); Hypochromasia Marked; Lymphocytes # (A) 1.4 k/uL (1.0-4.8); Lymphocytes % (A) 17 %; MCH 25.4 pg (25.0-35.0); MCHC 29.2 g/dL (31.0-37.0); MCV 87.2 fL (80.0-100.0); Mean Platelet Volume 7.1; Monocytes # (A) 0.4 k/uL (0-1.0); Monocytes % (A) 5 %; Neutrophils # (A) 6.2 k/uL (1.3-7.7); Neutrophils % (A) 74 %; Platelet Count 282 k/uL (150-450); RDW 16.5 % (11.5-15.5); WBC 8.4 k/uL (3.8-10.6)
[2017-07-20 08:39] LABS: ALT 42 U/L (9-52); AST 70 U/L (14-36); Alkaline Phosphatase 358 U/L (38-126); Anion Gap 12 mmol/L; Blood Urea Nitrogen 17 mg/dL (7-17); Calcium 9.9 mg/dL (8.4-10.2); Carbon Dioxide 25 mmol/L (22-30); Chloride 106 mmol/L (98-107); Glucose 105 mg/dL (74-99); Potassium 4.9 mmol/L (3.5-5.1); Sodium 143 mmol/L (137-145); Total Bilirubin 0.6 mg/dL (0.2-1.3); Total Protein 8.8 g/dL (6.3-8.2)
[2017-07-20] MEDS ORDERED: PANTOPRAZOLE 40 MG/10 ML VIAL IVP SCH (09:00)
[2017-07-20] MEDS ORDERED: ALBUTEROL NEBULIZED 2.5 MG/3 ML INHALATION PRN (10:20)
[2017-07-20] MEDS ORDERED: RX INFO: IV CONTRAST WAS GIVEN 1 EACH MISC MISCELLANE PRN (10:21)
--- NOTE | 2017-07-20 10:23 | P.CNPUL ---
History of Present Illness Consult date: 07/20/17 Reason for consult: COPD, other Chief complaint: Altered mental status History of present illness: Patient seen and examined in consultation for interstitial lung disease. The patient apparently presented to the emergency department with confusion and altered mental status. The patient is awake and alert however she is unable to explain what brought her to the hospital. She is having difficulty giving history. When asked if she did any drugs or took any medication she adamantly denies. Apparently the patient's daughter was in the room and both the mother in the daughter became acutely confused. The daughter went into respiratory arrest and was intubated and admitted to the intensive care unit. 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 She was referred on to [facility] for lung biopsy however was told that she needs to quit smoking before they will do the biopsy. She has not followed up in my office since November 2016. The patient states she continues to smoke but cannot quantify how much. Further history is difficult to obtain. Review of Systems All systems: negative Past Medical History Past Medical History: COPD, Hypertension History of Any Multi-Drug Resistant Organisms: None Reported Past Surgical History: Hysterectomy Additional Past Surgical History / Comment(s): Right hip and arm repair Past Anesthesia/Blood Transfusion Reactions: No Reported Reaction Past Psychological History: No Psychological Hx Reported Smoking Status: Current some day smoker Past Alcohol Use History: None Reported Past Drug Use History: None Reported - Past Family History Mother Family Medical History: Unable to Obtain Additional Family Medical History / Comment(s): unable to verbalize Medications and Allergies Home Medications Medication Instructions Recorded Confirmed Type Budesonide [Pulmicort] 0.5 mg INHALATION RT-BID 08/17/16 04/06/17 History Cyclobenzaprine [Flexeril] 10 mg PO TID 08/17/16 04/06/17 History Gabapentin 600 mg PO TID 08/17/16 04/06/17 History Hydrochlorothiazide [Hydrodiuril] 12.5 mg PO BID 08/17/16 04/06/17 History Ipratropium [place] [Atrovent Hfa] 2 puff INHALATION RT-QID PRN 08/17/16 History SUMAtriptan SUCCINATE [Imitrex] 100 mg PO BID PRN 08/17/16 04/06/17 History Tiotropium [place] [Spiriva] 1 cap INHALATION RT-DAILY 08/17/16 04/06/17 History cloNIDine HCL [Catapres] 0.1 mg PO BID 08/17/16 07/19/17 History Formoterol Fumarate [Perforomist] 20 mcg INHALATION RT-BID nebu 08/21/16 Rx Ipratropium Nebulized [Atrovent 0.5 mg INHALATION RT-TID nebu 08/21/16 Rx Nebulized] Levalbuterol Nebulized (Conc) 1.25 mg INHALATION RT-TID nebule 08/21/16 Rx [Xopenex Nebulized (Conc)] clonazePAM [KlonoPIN] 0.5 mg PO BID #60 tablet 08/21/16 07/19/17 Rx Hydrocodone/Acetaminophen [[place] 1 tab PO Q6HR PRN #15 tab 04/06/17 Rx 5-325] PARoxetine HCL [Paxil] 40 mg PO DAILY 04/06/17 04/06/17 History Allergies Allergy/AdvReac Type Severity Reaction Status Date / Time No Known Allergies Allergy Verified 07/19/17 14:46 Physical Exam Osteopathic Statement: *. No significant issues noted on an osteopathic structural exam other than those noted in the History and Physical/Consult. Vitals: Vital Signs Temp Pulse Pulse Resp BP BP Pulse Ox 07/20/17 07:53 95 07/20/17 07:32 91 16 07/20/17 04:44 98.0 F 91 16 159/83 98 07/20/17 04:00 88 20 165/84 98 07/20/17 03:00 98 F 91 20 165/85 98 07/20/17 02:00 88 18 166/75 98 07/20/17 01:00 90 18 165/85 97 07/19/17 23:00 83 18 155/75 97 07/19/17 22:00 95 20 187/88 97 07/19/17 21:39 98.1 F 88 18 179/90 98 07/19/17 20:00 78 18 155/87 97 07/19/17 19:39 75 20 167/83 98 07/19/17 19:01 109 H 22 178/79 96 07/19/17 18:37 107 H 22 170/91 93 L 07/19/17 18:09 107 H 20 198/93 98 07/19/17 17:48 115 H 191/105 07/19/17 17:18 115 H 171/97 07/19/17 16:48 119 H 170/114 94 L 07/19/17 14:48 100 195/91 97 07/19/17 14:18 106 H 202/103 97 07/19/17 13:32 112 H 185/90 90 L Intake and Output 07/19/17 07/20/17 07/20/17 22:59 06:59 14:59 Other: Voiding Method Toilet Toilet Weight 50 kg Gen.: Patient is alert, no acute distress, confused Cardiovascular: Regular rate and rhythm, S1/S2 Lungs: Bilateral crackles Abdomen: Soft nontender nondistended positive bowel sounds Extremities: No edema Results - Laboratory Findings CBC and BMP: 07/20/17 07:39 07/20/17 07:39 PT/INR, D-dimer PT 10.2 sec (9.0-12.0) 07/19/17 13:50 INR 1.0 (<1.2) 07/19/17 13:50 Abnormal lab findings: Abnormal Labs 07/19/17 07/19/17 07/19/17 13:50 13:50 13:50 Hgb 10.9 L MCHC 30.2 L RDW 16.5 H BUN 26 H Glucose 108 H AST 78 H ALT 53 H Alkaline Phosphatase 422 H Total Creatine Kinase 487 H CK-MB (CK-2) 6.4 H* Total Protein 9.5 H Urine Appearance Urine Protein Amorphous Sediment Urine Bacteria Urine Mucus U Tricyclic Antidepress Hep C IgG Ab 07/19/17 07/19/17 07/19/17 13:50 14:24 14:28 Hgb MCHC RDW BUN Glucose AST ALT Alkaline Phosphatase Total Creatine Kinase CK-MB (CK-2) Total Protein Urine Appearance Cloudy H Urine Protein 1+ H Amorphous Sediment Rare H Urine Bacteria Few H Urine Mucus Occasional H U Tricyclic Antidepress Detected H Hep C IgG Ab Reactive H 07/20/17 07/20/17 07:39 07:39 Hgb 9.9 L MCHC 29.2 L RDW 16.5 H BUN Glucose 105 H AST 70 H ALT Alkaline Phosphatase 358 H Total Creatine Kinase CK-MB (CK-2) Total Protein 8.8 H Urine Appearance Urine Protein Amorphous Sediment Urine Bacteria Urine Mucus U Tricyclic Antidepress Hep C IgG Ab - Diagnostic Findings Chest x-ray: report reviewed, image reviewed Assessment and Plan Assessment: Encephalopathy of unclear etiology Cystic lung disease, differential includes SCHWAB, Histiocytosis X, cystic bronchiectasis, LIP/DIP, HP, other COPD, not acutely exacerbated Bronchiectasis Pulmonary cachexia Active tobacco abuse Anemia Hypertension s/p bronchoscopy on 11/06/2016 - AFB negative, + E coli O2 to maintain sat > or = 88% Symbicort, Atrovent (change to Spiriva upon discharge), Albuterol PRN IS and pulmonary hygiene PT and OT Smoking cessation is highly recommended Incentive spirometry and pulmonary hygiene Singulair GI and DVT prophylaxis: Protonix and Heparin Outpatient pulmonary follow up for cystic lung disease, patient has not followed up in my office since November 2016 [facility] required her to quit smoking prior to lung biopsy and this was not achieved and she never followed up Will obtain CT chest to assess pulmonary nodules Neurology and psych recommendations
[2017-07-20] MEDS: IPRATROPIUM 0.5 MG/2.5 ML NEBU INHALATION SCH ×3 (11:42→19:31)
--- NOTE | 2017-07-20 12:50 | CT ---
EXAMINATION TYPE: CT chest w con DATE OF EXAM: 07/20/2017 COMPARISON: Previous study dated 08/17/2016 HISTORY: Cough, Right upper lung mass CT DLP: 128.1 mGycm Automated exposure control for dose reduction was used. CONTRAST: CT scan of the chest is performed with IV Contrast, patient injected with 100 mL of Omnipaque 300. FINDINGS: There is diffuse emphysematous change throughout the lungs. There are multiple nodular opac ities throughout both lungs. The largest is adjacent to the major fissure on the right and has increa sed in size from 9.3 mm to 11 mm. There is apical pleural scarring. Pretracheal adenopathy is present. The largest lymph node mass measures 1.4 cm. This is similar to e previous study. There is no definite hilar adenopathy. The aorta is normal in size without evidence of dissection. Heart size upper limits of normal. There is no pleural or pericardial fluid. There are bilateral heavily calcified breast implants in place. The right implant appears ruptured in 2 places. There are stable hypoattenuating lesions in the left lobe of the liver which have the appearance of c ysts. This could BE confirmed with ultrasound. Visualized portions of the upper abdomen are otherwise normal. No bony destructive lesion is seen. IMPRESSION: 1. MULTIPLE PULMONARY NODULES CONSISTENT WITH METASTATIC DISEASE. 2. EXTENSIVE EMPHYSEMATOUS CHANGE. 3. STABLE MEDIASTINAL ADENOPATHY. 4. PROBABLE RUPTURE OF THE PATIENT'S RIGHT IMPLANT. 5. PROBABLE CYST WITHIN THE LIVER. THIS SHOULD BE CONFIRMED WITH ULTRASOUND IN LIGHT OF THE PULMONARY FINDINGS.
[2017-07-20] MEDS: ONDANSETRON 4 MG/2 ML VIAL IVP PRN (13:08)
[2017-07-20] MEDS: SYMBICORT 160-4.5 MCG INHALER INHALATION SCH (19:31)
[2017-07-20] MEDS: MONTELUKAST 10 MG TAB PO SCH (20:41)
--- NOTE | 2017-07-20 21:55 | PN ---
PROGRESS NOTE DATE OF SERVICE: 07/20/2017. I am covering for Dr. Sage. HISTORY: This 72-year-old was admitted with change in mental status. The patient has metabolic encephalopathy, drug overdose suspected. It is also noted that the patient's daughter who lives with her is admitted in ICU with suspected drug overdose and acute respiratory failure, mechanically ventilated and intubated. Currently patient is confused. EXAM: Pulse is 99, blood pressure 160/80, respirations 18, temperature 98.2, pulse ox 97% on 2 L. HEENT: Conjunctivae normal. Oral mucosa moist. NECK: No jugular venous distention. No lymph node enlargement. CARDIOVASCULAR: S1 and S2. LUNGS: Diminished at the bases. No rhonchi, no crackles. ABDOMEN: Soft, nontender. No mass palpable. EXTREMITIES: Legs no edema, no cyanosis. LYMPHATICS: No lymphadenopathy. SKIN: No rashes. LABS: WBC 8.1, hemoglobin 9.9. Other labs are noted. Alkaline phosphatase is 358. Hepatitis C IgG is reactive. ASSESSMENT: 1. Change in mental status, possible acute metabolic encephalopathy secondary to drug overdose. 2. Increased AST, ALT, alkaline phosphatase. 3. Anemia, normocytic anemia of chronic disease. 4. Chronic obstructive pulmonary disease. 5. Hypertension. 6. History of hysterectomy. 7. History of nicotine dependence. 8. Rule out hepatitis C. RECOMMENDATIONS AND DISCUSSION: I recommend to continue current management and symptomatic treatment. Otherwise at this time I would recommend monitor closely. Neurology evaluation has been sought. Continue the rest of the medications. Guarded prognosis. Further recommendations to follow. MMODL / IJN: [id number] /
[2017-07-20] MEDS: cloNIDine HCL 0.1 MG TAB PO PRN (22:01)
[2017-07-21] MEDS: SYMBICORT 160-4.5 MCG INHALER INHALATION SCH (07:31)
[2017-07-21] MEDS: IPRATROPIUM 0.5 MG/2.5 ML NEBU INHALATION SCH ×4 (07:31→19:34)
[2017-07-21] MEDS: PANTOPRAZOLE 40 MG TABLET PO SCH (07:38)
[2017-07-21] MEDS: HEPARIN SODIUM,PORCINE 5,000 UNIT/ML 1 ML VIAL SQ SCH ×2 (07:38→22:30)
[2017-07-21 07:42] LABS: Anisocytosis Slight; Basophils % (A) 1 %; Eosinophils # (A) 0.1 k/uL (0-0.7); Eosinophils % (A) 1 %; HCT 36.7 % (34.0-46.0); Hypochromasia Moderate; Lymphocytes # (A) 1.5 k/uL (1.0-4.8); Lymphocytes % (A) 18 %; MCH 25.6 pg (25.0-35.0); MCHC 30.1 g/dL (31.0-37.0); MCV 85.1 fL (80.0-100.0); Mean Platelet Volume 6.8; Monocytes # (A) 0.6 k/uL (0-1.0); Monocytes % (A) 7 %; Neutrophils # (A) 5.8 k/uL (1.3-7.7); Neutrophils % (A) 71 %; Platelet Count 284 k/uL (150-450); RBC 4.31 m/uL (3.80-5.40); RDW 16.5 % (11.5-15.5); WBC 8.1 k/uL (3.8-10.6)
[2017-07-21 07:57] LABS: ALT 46 U/L (9-52); AST 58 U/L (14-36); Albumin 3.9 g/dL (3.5-5.0); Alkaline Phosphatase 380 U/L (38-126); Anion Gap 15 mmol/L; Blood Urea Nitrogen 17 mg/dL (7-17); Carbon Dioxide 24 mmol/L (22-30); Chloride 102 mmol/L (98-107); Glucose 82 mg/dL (74-99); Potassium 3.8 mmol/L (3.5-5.1); Sodium 141 mmol/L (137-145); Total Bilirubin 0.6 mg/dL (0.2-1.3); Total Protein 8.7 g/dL (6.3-8.2)
[2017-07-21] MEDS ORDERED: NON-FORMULARY DRUG (Ipratropium Bromide [Atrovent Hfa] 2 PUFF) INHALATION PRN (08:07)
[2017-07-21] MEDS ORDERED: SUMAtriptan SUCCINATE 50 MG TAB PO PRN (08:07)
--- NOTE | 2017-07-21 08:14 | P.DS ---
Providers Date of admission: 07/19/17 16:49 Attending physician: Omid Sage Consults: 07/19/17 19:27 Consult Physician Routine Consulting Provider: Lorie Huerta Consult Reason/Comments: copd Do you want consulting provider notified?: Yes 07/19/17 19:28 Consult Physician Routine Consulting Provider: José Pendleton Consult Reason/Comments: change in ms Do you want consulting provider notified?: Yes Primary care physician: Omid Sage Patient Condition at Discharge: Fair Plan - Discharge Summary Discharge Rx Participant: No New Discharge Prescriptions: New Albuterol Nebulized [Ventolin Nebulized] 2.5 mg INHALATION RT-QID PRN nebu PRN Reason: Shortness Of Breath Or Wheezing Ipratropium Nebulized [Atrovent Nebulized] 0.5 mg INHALATION RT-QID nebu Montelukast [Singulair] 10 mg PO HS #30 tab Nitrofurantoin Monohyd/M-Cryst [Macrobid] 100 mg PO BID #14 cap Continue SUMAtriptan SUCCINATE [Imitrex] 100 mg PO BID PRN PRN Reason: Migraine Headache cloNIDine HCL [Catapres] 0.1 mg PO BID Hydrochlorothiazide [Hydrodiuril] 12.5 mg PO BID Budesonide [Pulmicort] 0.5 mg INHALATION RT-BID Tiotropium [place] [Spiriva] 1 cap INHALATION RT-DAILY Ipratropium [place] [Atrovent Hfa] 2 puff INHALATION RT-QID PRN PRN Reason: Shortness Of Breath Cyclobenzaprine [Flexeril] 10 mg PO TID Gabapentin 600 mg PO TID Formoterol Fumarate [Perforomist] 20 mcg INHALATION RT-BID nebu Ipratropium Nebulized [Atrovent Nebulized] 0.5 mg INHALATION RT-TID nebu Levalbuterol Nebulized (Conc) [Xopenex Nebulized (Conc)] 1.25 mg INHALATION RT-TID nebule clonazePAM [KlonoPIN] 0.5 mg PO BID #60 tablet PARoxetine HCL [Paxil] 40 mg PO DAILY Hydrocodone/Acetaminophen [[place] 5-325] 1 tab PO Q6HR PRN #15 tab PRN Reason: Pain Discharge Medication List Budesonide [Pulmicort] 0.5 mg INHALATION RT-BID 08/17/16 [History] Cyclobenzaprine [Flexeril] 10 mg PO TID 08/17/16 [History] Gabapentin 600 mg PO TID 08/17/16 [History] Hydrochlorothiazide [Hydrodiuril] 12.5 mg PO BID 08/17/16 [History] Ipratropium [place] [Atrovent Hfa] 2 puff INHALATION RT-QID PRN 08/17/16 [ History] SUMAtriptan SUCCINATE [Imitrex] 100 mg PO BID PRN 08/17/16 [History] Tiotropium [place] [Spiriva] 1 cap INHALATION RT-DAILY 08/17/16 [History] cloNIDine HCL [Catapres] 0.1 mg PO BID 08/17/16 [History] Formoterol Fumarate [Perforomist] 20 mcg INHALATION RT-BID nebu 08/21/16 [Rx] Ipratropium Nebulized [Atrovent Nebulized] 0.5 mg INHALATION RT-TID nebu [Rx] Levalbuterol Nebulized (Conc) [Xopenex Nebulized (Conc)] 1.25 mg INHALATION RT- TID nebule 08/21/16 [Rx] clonazePAM [KlonoPIN] 0.5 mg PO BID #60 tablet 08/21/16 [Rx] Hydrocodone/Acetaminophen [[place] 5-325] 1 tab PO Q6HR PRN #15 tab 04/06/17 [Rx] PARoxetine HCL [Paxil] 40 mg PO DAILY 04/06/17 [History] Albuterol Nebulized [Ventolin Nebulized] 2.5 mg INHALATION RT-QID PRN nebu [Rx] Ipratropium Nebulized [Atrovent Nebulized] 0.5 mg INHALATION RT-QID nebu [Rx] Montelukast [Singulair] 10 mg PO HS #30 tab 07/21/17 [Rx] Nitrofurantoin Monohyd/M-Cryst [Macrobid] 100 mg PO BID #14 cap 07/21/17 [Rx] Follow up Appointment(s)/Referral(s): Omid Sage MD [Primary Care Provider] - 1-2 days
[2017-07-21] MEDS: NITROFURANTOIN MONOHYD/M-CRYST 100 MG CAP PO SCH ×2 (08:58→22:31)
[2017-07-21] MEDS: PARoxetine 20 MG TAB PO SCH (08:58)
[2017-07-21] MEDS: GABAPENTIN 300 MG CAP PO SCH ×3 (08:58→22:31)
[2017-07-21] MEDS: HYDROCHLOROTHIAZIDE 12.5 MG CAP PO SCH ×2 (08:58→22:31)
[2017-07-21] MEDS: cloNIDine HCL 0.1 MG TAB PO SCH ×2 (08:59→22:30)
--- NOTE | 2017-07-21 09:58 | P.PN ---
Subjective Progress Note Date: 07/21/17 Principal diagnosis: Altered mental status/COPD HPI: Patient seen and examined in consultation for interstitial lung disease. The patient apparently presented to the emergency department with confusion and altered mental status. The patient is awake and alert however she is unable to explain what brought her to the hospital. She is having difficulty giving history. When asked if she did any drugs or took any medication she adamantly denies. Apparently the patient's daughter was in the room and both the mother in the daughter became acutely confused. The daughter went into respiratory arrest and was intubated and admitted to the intensive care unit. 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 She was referred on to [facility] for lung biopsy however was told that she needs to quit smoking before they will do the biopsy. She has not followed up in my office since November 2016. The patient states she continues to smoke but cannot quantify how much. Further history is difficult to obtain. 07/21/17- patient is being seen and examined and evaluated today on rounds. The patient apparently was refusing her telemetry and order for telemetry has been DC'd per primary. The patient is alert to person and place but not time. The patient states she lives with her daughter who is her caregiver and is currently in the intensive care unit on mechanical ventilation and that is the only family member that she has. Upon examination today the patient is doing much better she continues on 2 L of supplemental oxygen via nasal cannula. She does have shortness of breath with exertion and activity. She states she has a chronic cough, with no sputum production. The patient states that she wears home oxygen as well 2 L 24/7. Patient states she also has breathing treatments at home and a nebulizer machine. However due to her altered mental status this needs to be verified with someone in the family. Case management is also involved and is trying to contact some more family members. Objective - Vital Signs Vital signs: Vital Signs Temp 98.2 F 07/21/17 07:00 Pulse 109 H 07/21/17 07:00 Resp 18 07/21/17 07:00 BP 177/98 07/21/17 07:00 Pulse Ox 92 L 07/21/17 07:00 Intake & Output 07/20/17 07/21/17 07/21/17 18:59 06:59 18:59 Intake Total 240 240 Balance 240 240 Intake: Oral 240 240 Other: Voiding Method Toilet Toilet # Voids 3 2 - Exam Gen.: Patient is alert, no acute distress, confused, cachectic Cardiovascular: Regular rate and rhythm, S1/S2 Lungs: Bilateral crackles improved, bases diminished Abdomen: Soft nontender nondistended positive bowel sounds Extremities: No edema - Labs CBC & Chem 7: 07/21/17 06:57 07/21/17 06:57 Labs: Abnormal Lab Results - Last 24 Hours (Table) 07/21/17 07/21/17 Range/Units 06:57 06:57 Hgb 11.0 L (11.4-16.0) gm/dL MCHC 30.1 L (31.0-37.0) g/dL RDW 16.5 H (11.5-15.5) % AST 58 H (14-36) U/L Alkaline Phosphatase 380 H (38-126) U/L Total Protein 8.7 H (6.3-8.2) g/dL Microbiology - Last 24 Hours (Table) 07/19/17 14:28 Urine Culture - Preliminary Urine,Catheterized Group D Enterococcus Assessment and Plan Assessment: Encephalopathy of unclear etiology Cystic lung disease, differential includes SCHWAB, Histiocytosis X, cystic bronchiectasis, LIP/DIP, HP, other COPD, not acutely exacerbated Bronchiectasis Pulmonary cachexia Active tobacco abuse Anemia Hypertension s/p bronchoscopy on 11/06/2016 - AFB negative, + E coli O2 to maintain sat > or = 88% Symbicort, Atrovent (change to Spiriva upon discharge), Albuterol PRN IS and pulmonary hygiene PT and OT Smoking cessation is highly recommended Incentive spirometry and pulmonary hygiene Singulair GI and DVT prophylaxis: Protonix and Heparin Outpatient pulmonary follow up for cystic lung disease, patient has not followed up in my office since November 2016 [facility] required her to quit smoking prior to lung biopsy and this was not achieved and she never followed up Will obtain CT chest to assess pulmonary nodules Neurology and psych recommendations I performed an examination of the patient and discussed their management with the nurse practitioner. I have reviewed the nurse practitioner's note and agree with the documented findings and plan of care.
[2017-07-21] MEDS ORDERED: IPRATROPIUM 0.5 MG/2.5 ML NEBU INHALATION SCH (13:00)
[2017-07-21] MEDS ORDERED: RX INFO: IV CONTRAST WAS GIVEN 1 EACH MISC MISCELLANE PRN (15:16)
--- NOTE | 2017-07-21 19:02 | EEG ---
ELECTROENCEPHALOGRAM REPORT DATE OF SERVICE: 07/21/2017 REASON FOR TESTING: Altered mental status. DESCRIPTION OF THE PROCEDURE: This EEG was performed using a 21 channel digital electroencephalograph, following international 10-20 system. DESCRIPTION OF THE RECORDING: From the beginning of the tracing, with patient's eyes closed, the background rhythm was mostly consisting of 8 Hz alpha frequency in the posterior occipital leads. No obvious asymmetry is seen. Photic stimulation was performed with a minimal driving response seen. No pathological waves were elicited. Hyperventilation was not performed. The patient remains awake throughout the tracing. No epileptiform discharges were seen. Her EKG lead showed a regular rate and rhythm. INTERPRETATION: This awake EEG can be considered within normal limits. There is no asymmetry seen. No epileptiform discharges were noticed. The absence of epileptiform discharges does not rule out the diagnosis of epilepsy, therefore clinical correlation is recommended. MMCKL / IJN: [id number] /
[2017-07-21] MEDS: BUDESONIDE 0.5 MG/2 ML NEBU INHALATION SCH (19:34)
[2017-07-21] MEDS: FORMOTEROL FUMARATE 20 MCG/2 ML NEBU INHALATION SCH (19:34)
[2017-07-21] MEDS: ALBUTEROL NEBULIZED 2.5 MG/3 ML INHALATION SCH ×2 (20:02→21:00)
[2017-07-21] MEDS ORDERED: LORazepam 2 MG/ML INJ IV STA (20:17)
--- NOTE | 2017-07-21 20:28 | CT ---
EXAMINATION TYPE: CT abdomen pelvis w con DATE OF EXAM: 07/21/2017 COMPARISON: NONE HISTORY: R/o metastatic disease uterine cancer CT DLP: 711 mGycm Automated exposure control for dose reduction was used. TECHNIQUE: Helical acquisition of images was performed from the lung bases through the pelvis. CONTRAST: Performed without Oral Contrast and with IV Contrast, patient injected with 100 mL of Omnipaque 300. FINDINGS: There is coarse interstitial density at the lung bases. There is no pleural effusion. There are bilat eral breast implants. Heart size is normal. There is no pericardial effusion. There are 2 rounded fluid density 2.5 some air foci in the left lobe of the liver. Bile ducts are not dilated. Gallbladder appears normal. Spleen appears normal. There is no pancreatic mass. There is no adrenal mass. Kidneys show satisfactory contrast opacification. There is no hydronephrosi s. Abdominal aorta is atheromatous. There is retained fecal material throughout the colon down to the rectum. There is a right hip prosthesis. Bladder distends smoothly. I see no ascites. I see no intes tinal wall thickening. There are no dilated loops. There are some spondylotic changes in the lumbar spine at L4-5. I see no compression fracture. I see no focal bone destruction. IMPRESSION: ATHEROSCLEROTIC VASCULAR DISEASE. HEPATIC CYSTS. 1 CM RIGHT RENAL CORTICAL CYST. HEPATIC CYSTS ARE ST ABLE COMPARED TO CHEST CT SCAN 08/17/2016. CONSTIPATION. I SEE NO EVIDENCE OF METASTATIC DISEASE IN TH E ABDOMEN AND PELVIS.
--- NOTE | 2017-07-21 22:14 | CONS ---
CONSULTATION DATE OF CONSULTATION: 07/21/2017. CHIEF COMPLAINT: Altered mental status. HISTORY OF PRESENT ILLNESS: Mrs. Jones is a pleasant 72-year-old female, who was being evaluated by the neurology service per the request of Dr. Rincon for altered mental status. The patient was brought into [facility] Emergency Room after her daughter noticed that she is not acting like her usual self. The patient was confused in the emergency room and somewhat disoriented. After arrival, the patient had respiratory distress and had to be intubated and admitted to the intensive care unit. Since then, her respiratory status improved and she was extubated. At the time of my evaluation, she is lying in her bed and appears to be in no acute distress. A CT scan of the brain was done which showed some skullbase artifacts but had no obvious intracranial abnormalities. A chest x-ray was done, which showed a right upper lobe nodule and this prompted a CT scan of the chest to be ordered which showed multiple nodules concerning for neoplastic process. Her comprehensive metabolic profile showed hepatic insufficiency with an AST of 78 and an ALT of 53. Her alkaline phosphatase was 380. Her hepatitis panel came back positive for hepatitis C. She did have an EEG today and I did review this study which was normal. The patient is in no acute distress at the time of my evaluation, and she appears to be back to her baseline as she is oriented x3. No seizure-like activity has been described. Pulmonology is following the patient and they are considering an interventional radiology consultation for possible lung nodule biopsy. PAST MEDICAL HISTORY: Chronic obstructive pulmonary disease, hypertension, history of hysterectomy, migraine headaches, depression, anxiety disorder. FAMILY HISTORY: Noncontributory. SOCIAL HISTORY: The patient is a an every day smoker. She denies any alcohol or drug use. HOME MEDICATIONS: Reviewed in the chart. ALLERGIES: No known drug allergies. REVIEW OF SYSTEM: CONSTITUTIONAL: Positive for fatigue. EYES: Negative. ENT: Negative. CARDIOVASCULAR: Negative. RESPIRATORY: As mentioned above. NEUROLOGICAL: As mentioned above. She denies any lateralizing numbness or weakness. GASTROINTESTINAL: Positive for occasional nausea. GENITOURINARY: Negative. MUSCULOSKELETAL: Positive for cough occasional low back pain and frequent right hip pain. She does have history of right hip replacement surgery. DERMATOLOGICAL: Negative. ENDOCRINE: Negative. PHYSICAL EXAM: Vital signs show a temperature of 97.6, pulse 98, respirations 16, blood pressure 120/72. GENERAL APPEARANCE: The patient is a thin elderly female who appears to be in no acute distress. HEENT: Normocephalic, atraumatic, no facial asymmetry is seen. NECK: Supple with no masses felt. CARDIOVASCULAR: Regular rate and rhythm. Abdomen chief nontender nondistended. Extremities showed no edema or clubbing. Neurological exam: The patient is awake and oriented x3. Speech and language are normal. Strength is full in all 4 extremities. Sensory exam was normal to light touch in all 4 extremities. No tremors or seizure- like activity is seen. No facial asymmetry is noticed on cranial nerve testing. IMPRESSION: 1. Altered mental status, resolved. 2. Multiple lung nodules, concerning for neoplastic disorder. 3. Hepatitis C. 4. Emphysema. 5. Continued tobacco dependence. 6. Hepatic insufficiency. RECOMMENDATION: The patient's altered mental status appears to have resolved. She may have been encephalopathic given her respiratory distress and was likely hypoxic given her recent history. Her EEG was reviewed and it was within normal limits. Given the concerning findings on her CT scan of the chest, I will order an MRI of the brain with and without contrast to rule out any metastatic brain lesions. She does report claustrophobia and I will treat her with Ativan IV. Pulmonology is following the patient and they are contemplating attempting a lung biopsy. Overall, prognosis is guarded. Continue neuro checks. I will continue to follow with you. Further recommendations to follow. Thank you for allowing me to participate in the care of your patient. If you have any questions, please feel free to contact me. MMODL / IJN: [id number] /
[2017-07-21] MEDS: MONTELUKAST 10 MG TAB PO SCH (22:32)
[2017-07-22] MEDS: BUDESONIDE 0.5 MG/2 ML NEBU INHALATION SCH (07:17)
[2017-07-22] MEDS: IPRATROPIUM 0.5 MG/2.5 ML NEBU INHALATION SCH ×2 (07:17→12:28)
[2017-07-22] MEDS: FORMOTEROL FUMARATE 20 MCG/2 ML NEBU INHALATION SCH (07:17)
[2017-07-22 07:59] LABS: Anisocytosis Slight; Basophils # (A) 0.1 k/uL (0-0.2); Basophils % (A) 1 %; Eosinophils # (A) 0.2 k/uL (0-0.7); Eosinophils % (A) 2 %; HCT 38.5 % (34.0-46.0); HGB 11.4 gm/dL (11.4-16.0); Hypochromasia Marked; Lymphocytes # (A) 1.3 k/uL (1.0-4.8); Lymphocytes % (A) 19 %; MCH 25.3 pg (25.0-35.0); MCHC 29.7 g/dL (31.0-37.0); MCV 85.2 fL (80.0-100.0); Mean Platelet Volume 6.5; Monocytes # (A) 0.6 k/uL (0-1.0); Monocytes % (A) 9 %; Neutrophils # (A) 4.4 k/uL (1.3-7.7); Neutrophils % (A) 66 %; Platelet Count 287 k/uL (150-450); RBC 4.52 m/uL (3.80-5.40); RDW 16.2 % (11.5-15.5); WBC 6.8 k/uL (3.8-10.6)
[2017-07-22] MEDS ORDERED: NON-FORMULARY DRUG (Tiotropium Bromide [Spiriva] 1 CAP) INHALATION SCH (08:00)
[2017-07-22 08:05] LABS: ALT 32 U/L (9-52); AST 58 U/L (14-36); Albumin 3.8 g/dL (3.5-5.0); Alkaline Phosphatase 337 U/L (38-126); Anion Gap 15 mmol/L; Blood Urea Nitrogen 29 mg/dL (7-17); Calcium 9.4 mg/dL (8.4-10.2); Carbon Dioxide 24 mmol/L (22-30); Chloride 100 mmol/L (98-107); Glucose 91 mg/dL (74-99); Potassium 3.6 mmol/L (3.5-5.1); Sodium 139 mmol/L (137-145); Total Bilirubin 0.6 mg/dL (0.2-1.3); Total Protein 8.7 g/dL (6.3-8.2)
[2017-07-22 08:09] VITALS: BP 160/94; TEMP 97.5
[2017-07-22] MEDS: NITROFURANTOIN MONOHYD/M-CRYST 100 MG CAP PO SCH (08:28)
[2017-07-22] MEDS: HEPARIN SODIUM,PORCINE 5,000 UNIT/ML 1 ML VIAL SQ SCH (08:28)
[2017-07-22] MEDS: HYDROCHLOROTHIAZIDE 12.5 MG CAP PO SCH (08:29)
[2017-07-22] MEDS: GABAPENTIN 300 MG CAP PO SCH (08:29)
[2017-07-22] MEDS: PANTOPRAZOLE 40 MG TABLET PO SCH (08:30)
[2017-07-22] MEDS: cloNIDine HCL 0.1 MG TAB PO PRN (08:30)
[2017-07-22] MEDS: cloNIDine HCL 0.1 MG TAB PO SCH (08:33)
[2017-07-22] MEDS: PARoxetine 20 MG TAB PO SCH ×2 (08:38→08:40)
--- NOTE | 2017-07-22 10:12 | P.PN ---
Subjective Progress Note Date: 07/22/17 Principal diagnosis: Altered mental status/COPD HPI: Patient seen and examined in consultation for interstitial lung disease. The patient apparently presented to the emergency department with confusion and altered mental status. The patient is awake and alert however she is unable to explain what brought her to the hospital. She is having difficulty giving history. When asked if she did any drugs or took any medication she adamantly denies. Apparently the patient's daughter was in the room and both the mother in the daughter became acutely confused. The daughter went into respiratory arrest and was intubated and admitted to the intensive care unit. 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 She was referred on to [facility] for lung biopsy however was told that she needs to quit smoking before they will do the biopsy. She has not followed up in my office since November 2016. The patient states she continues to smoke but cannot quantify how much. Further history is difficult to obtain. 07/21/17- patient is being seen and examined and evaluated today on rounds. The patient apparently was refusing her telemetry and order for telemetry has been DC'd per primary. The patient is alert to person and place but not time. The patient states she lives with her daughter who is her caregiver and is currently in the intensive care unit on mechanical ventilation and that is the only family member that she has. Upon examination today the patient is doing much better she continues on 2 L of supplemental oxygen via nasal cannula. She does have shortness of breath with exertion and activity. She states she has a chronic cough, with no sputum production. The patient states that she wears home oxygen as well 2 L 23/12. Patient states she also has breathing treatments at home and a nebulizer machine. However due to her altered mental status this needs to be verified with someone in the family. Case management is also involved and is trying to contact some more family members. 07/22/17- patient has been seen and examined and evaluated on rounds today. The patient is resting up in bed after showering and 2 L of supplemental oxygen via nasal cannula. She did undergo CT of the abdomen and pelvis for evaluation of possible metastases which was negative for any metastasis. She was also seen by neurology yesterday and will be undergoing an MRI of the brain this morning as well. Discharge planning is in process and the patient may be potentially discharged in the near future per the nursing staff. On examination the patient does say she gets short of breath with activity and ambulation. She continues with a chronic dry cough. The results of her CT of the chest were reviewed with her at length, patient is agreeable to have an outpatient workup and possible biopsy in the future. Objective - Vital Signs Vital signs: Vital Signs Temp 97.5 F L 07/22/17 08:08 Pulse 82 07/22/17 08:08 Resp 18 07/22/17 08:08 BP 160/94 07/22/17 08:08 Pulse Ox 90 L 07/22/17 08:08 Intake & Output 07/21/17 07/22/17 07/22/17 18:59 06:59 18:59 Intake Total 480 Balance 480 Weight 50 kg 50 kg Intake: Oral 480 Other: Voiding Method Toilet Toilet # Voids 4 1 - Exam Gen.: Patient is alert, no acute distress, confused, cachectic Cardiovascular: Regular rate and rhythm, S1/S2 Lungs: Lungs clear to auscultation, diminished Abdomen: Soft nontender nondistended positive bowel sounds Extremities: No edema - Labs CBC & Chem 7: 07/22/17 07:09 07/22/17 07:09 Labs: Abnormal Lab Results - Last 24 Hours (Table) 07/22/17 07/22/17 Range/Units 07:09 07:09 MCHC 29.7 L (31.0-37.0) g/dL RDW 16.2 H (11.5-15.5) % BUN 29 H (7-17) mg/dL AST 58 H (14-36) U/L Alkaline Phosphatase 337 H (38-126) U/L Total Protein 8.7 H (6.3-8.2) g/dL Microbiology - Last 24 Hours (Table) 07/19/17 14:28 Urine Culture - Final Urine,Catheterized Enterococcus faecalis Assessment and Plan Assessment: Encephalopathy of unclear etiology Cystic lung disease, differential includes SCHWAB, Histiocytosis X, cystic bronchiectasis, LIP/DIP, HP, other COPD, not acutely exacerbated Bronchiectasis Pulmonary cachexia Active tobacco abuse Anemia Hypertension s/p bronchoscopy on 11/06/2016 - AFB negative, + E coli O2 to maintain sat > or = 88% Symbicort, Atrovent (change to Spiriva upon discharge), Albuterol PRN IS and pulmonary hygiene PT and OT Smoking cessation is highly recommended Incentive spirometry and pulmonary hygiene Singulair GI and DVT prophylaxis: Protonix and Heparin Outpatient pulmonary follow up for cystic lung disease, patient has not followed up in my office since November 2016 [facility] required her to quit smoking prior to lung biopsy and this was not achieved and she never followed up CT of the chest was discussed with the patient at length. We will plan to do an outpatient workup and possible biopsy in the future upon discharge. Neurology and psych recommendations MRI of the brain today I performed an examination of the patient and discussed their management with the nurse practitioner. I have reviewed the nurse practitioner's note and agree with the documented findings and plan of care.
[2017-07-22] MEDS ORDERED: LORazepam 2 MG/ML INJ ONE (10:32)
--- NOTE | 2017-07-22 12:01 | MR ---
EXAMINATION TYPE: MR brain wo/w con DATE OF EXAM: 07/22/2017 COMPARISON: Correlation CT 07/19/2017 HISTORY: 72-year-old female with confusion, AMS TECHNIQUE: Multiplanar, multisequence images of the brain and brainstem were acquired before and aft er administration of 4.5 mL IV Gadavist. Diffusion weighted imaging is performed. Fast brain protoc ol was utilized due to patient moving. FINDINGS: No evidence for acute infarction, hemorrhage, mass, mass effect, midline shift, herniation, effacemen t of basal cisterns, or extra-axial fluid collection. The ventricles and sulci are age-appropriate mild generalized supratentorial volume loss. Major intracranial flow voids are intact. T2/FLAIR weighted sequences show mild scattered burden of right white matter changes especially in th e periventricular and deep white matter of both cerebral hemispheres. Midline structures demonstrate normal morphology. The craniocervical junction is normal. Post contrast images demonstrate no evidence of pathologic enhancement. Dural venous sinuses are pat ent. Mucosal thickening in the ethmoid air cells. Globes are intact. IMPRESSION: Mild cerebral atrophy and mild to moderate changes of chronic small vessel ischemic disease. No acute intracranial abnormality seen. Mild chronic ethmoid sinus disease.
[2017-07-22 13:13] VITALS: PULSE 80; RESP 17
--- NOTE | 2017-07-22 13:17 | P.DS ---
Providers Date of admission: 07/19/17 16:49 Attending physician: Omid Sage Consults: 07/19/17 19:27 Consult Physician Routine Consulting Provider: Lorie Huerta Consult Reason/Comments: copd Do you want consulting provider notified?: Yes 07/19/17 19:28 Consult Physician Routine Consulting Provider: José Pendleton Consult Reason/Comments: change in ms Do you want consulting provider notified?: Yes Primary care physician: Omid Sage Hospital Course: This discharge summary 72-year-old white female essentially admitted for altered mental status. Neurologic workup did not show any new event. She does have significant granulomatous disease versus lung nodules. She will be worked up as an outpatient. The patient will be discharged in stable condition to follow-up with me in approximately 3-7 days. Unfortunate, her daughter, who is her Wait Staff has been having difficulty with her own altered mental status. Question element of home environment versus poisoning. The patient is otherwise stable for discharge and will be cleared once cleared by consultants. Patient Condition at Discharge: Stable Plan - Discharge Summary Discharge Rx Participant: No New Discharge Prescriptions: New Albuterol Nebulized [Ventolin Nebulized] 2.5 mg INHALATION RT-QID PRN nebu PRN Reason: Shortness Of Breath Or Wheezing Ipratropium Nebulized [Atrovent Nebulized] 0.5 mg INHALATION RT-QID nebu Montelukast [Singulair] 10 mg PO HS #30 tab Nitrofurantoin Monohyd/M-Cryst [Macrobid] 100 mg PO BID #14 cap Continue SUMAtriptan SUCCINATE [Imitrex] 100 mg PO BID PRN PRN Reason: Migraine Headache cloNIDine HCL [Catapres] 0.1 mg PO BID Cyclobenzaprine [Flexeril] 10 mg PO Q8H PRN PRN Reason: Pain Gabapentin 600 mg PO TID clonazePAM [KlonoPIN] 0.5 mg PO BID #60 tablet PARoxetine HCL [Paxil] 40 mg PO DAILY Discharge Medication List Cyclobenzaprine [Flexeril] 10 mg PO Q8H PRN 08/17/16 [History] Gabapentin 600 mg PO TID 08/17/16 [History] SUMAtriptan SUCCINATE [Imitrex] 100 mg PO BID PRN 08/17/16 [History] cloNIDine HCL [Catapres] 0.1 mg PO BID 08/17/16 [History] clonazePAM [KlonoPIN] 0.5 mg PO BID #60 tablet 08/21/16 [Rx] PARoxetine HCL [Paxil] 40 mg PO DAILY 04/06/17 [History] Albuterol Nebulized [Ventolin Nebulized] 2.5 mg INHALATION RT-QID PRN nebu [Rx] Ipratropium Nebulized [Atrovent Nebulized] 0.5 mg INHALATION RT-QID nebu [Rx] Montelukast [Singulair] 10 mg PO HS #30 tab 07/21/17 [Rx] Nitrofurantoin Monohyd/M-Cryst [Macrobid] 100 mg PO BID #14 cap 07/21/17 [Rx] Follow up Appointment(s)/Referral(s): Omid Sage MD [Primary Care Provider] - 1-2 days Lorie Huerta DO [Doctor of Osteopathic Medicine] - 1 Week Discharge Disposition: HOME WITH HOME HEALTH SERVICES
[2017-07-22 15:09] LABS: Hepatits C Virus RNA DETECTED (Not detected); LOG HCV IU/mL 5.66 (<1.08)
== END 2017-07-22 15:50 | disposition home health service (06) ==
LOC: EC 13:16 → 4MS4W 16:49 → 5MS5E 07-20 04:13
PROVIDERS: ADMIT Family Medicine; ATTEND Family Medicine
DX: R41.82 Altered mental status, unspecified (principal); D71 Functional disorders of polymorphonuclear neutrophils; R91.8 Other nonspecific abnormal finding of lung field; J44.9 Chronic obstructive pulmonary disease, unspecified; I10 Essential (primary) hypertension; R74.0 Nonspecific elevation of levels of transaminase and lactic acid dehydrogenase [LDH]; J98.4 Other disorders of lung; J47.9 Bronchiectasis, uncomplicated; R64 Cachexia; G43.909 Migraine, unspecified, not intractable, without status migrainosus; F32.9 Major depressive disorder, single episode, unspecified; F41.9 Anxiety disorder, unspecified; K72.90 Hepatic failure, unspecified without coma; G93.40 Encephalopathy, unspecified; F40.240 Claustrophobia; F17.200 Nicotine dependence, unspecified, uncomplicated; R11.2 Nausea with vomiting, unspecified; D63.8 Anemia in other chronic diseases classified elsewhere; B19.20 Unspecified viral hepatitis C without hepatic coma; R53.1 Weakness; J84.9 Interstitial pulmonary disease, unspecified; Z90.710 Acquired absence of both cervix and uterus; Z79.899 Other long term (current) drug therapy; Z79.51 Long term (current) use of inhaled steroids
CPT/HCPCS: 99285; 96374 ×2; 96372 ×5; 96375 ×4; 96361 ×15; 96376 ×4; 36415; 94640; 94760; 95819; 93005; 97161; 87522; 80053 ×4; 80074; 82140; 82375; 82550; 82553; 83605; 83690; 83735; 84100; 84484; 85025 ×4; 85610; 85730; 81001; 80306; 87086; 87077; 87186; 71046; 76705; 70450; 71260; 74177; 70553; G0378 ×5; J2060 ×2; J2270; J1644 ×4; J2405 ×2; Q9967; C9113 ×2; A9581